=== PATIENT | male | born 1950 | race Two or more races ===

== ENCOUNTER 2024-10-09 08:58 | Inpatient (IN) | payer OTHER, MEDICAID ==
[2024-10-09] VITALS (47 sets, daily range): BP systolic 95–145; BP diastolic 33–90; PULSE 73–156; RESP 11–19; TEMP 93.6–99; O2SAT 89–100
[~2024-10-09] VITALS: Ht 175.3 cm; Wt 68.0 kg
[2024-10-09] MEDS: FLUMAZENIL 0.1 MG/ML INJ 10ML MDV IV ONE ×3 (09:04→09:58)
--- NOTE | 2024-10-09 09:11 | ED.PDOC ---
Psychiatric HPI Comments 74 y.o male presents to the ED via EMS for an evaluation of an overdose. EMS reports patient's family member found him unresponsive at home after attempting to wake him up. Per family patient has been unresponsive for the past 2 hours, unknown when he was last seen acting normal. Patient had an empty bottle of lorazepam near him with a 30 day/30 tablet supply but it is unsure per family how many patient took. Patient does have a history of previous suicidal attempts. EMS intubated en field. Patient has a left AKA. Time Seen by MD: 08:58 Reviewed Notes: Nurses Notes, Medications, Allergies Information Source: Emergency Med Personnel Mode of Arrival: EMS Timing: Hours Duration: Since onset Prehospital treatment: 12 Lead EKG, Accucheck, Ice Resurfacing Machine Operators, Intubation Circumstance: Found:Unconscious History of: Anxiety, Suicidal Attempt Associated signs and symptoms: Anxiety Past Medical History PAST MEDICAL HISTORY: Anxiety Surgical History: AKA (left ) Family History Family History: Reviewed,noncontributory to illness Social History Smoker: Unobtainable Alcohol: Unobtainable Drugs: Unobtainable Lives In: Unobtainable Unable to Obtain due to: Intubated Physical Exam General Appearance: Severe Distress HEENT: Other (Pupils not reactive) Neck: Full Range of Motion, Non-Tender, Normal, Normal Inspection Respiratory: Respiratory Distress, Other (Intubated) Cardiovascular: No Edema, No JVD, No Murmur, No Gallop, Normal Peripheral Pulses, Tachycardia Breast Exam: Deferred Gastrointestinal: No Organomegaly, Non Tender, No Pulsatile Mass, Normal Bowel Sounds, Soft Genitalia: Deferred Pelvic: Deferred Rectal: Deferred Extremities: Other (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 Was a procedure done?: Yes Sedation Sedation?: No Central Line Recorder of insertion practice: Charge Master Specialist Occupation of special diet cook: Attending Physician Indication: Hypotension, CVP monitoring Room prepared for procedure: Yes Charge Master Specialist performed hand hygien: Yes Maximal sterile barrier precau: Mask/Eye shield, Sterile gown Skin Preparation: Chlorhexidine gluconate, Providine iodine Skin preparation completely dr: Yes Insertion site: Right, Internal jugular Central line catheter type: [id number] dialysis Number of lumens: 3 Antiseptic ointment applied to: Yes Post Assessment: Chest X-Ray Psych Differential Dx Psych. Differential Dx: Anxiety, Suicidal X-Ray, Labs, Meds, VS Vital Signs Date Time Temp Pulse Resp B/P (MAP) Pulse Ox O2 Delivery O2 Flow Rate FiO2 10/09/24 12:40 103/52 10/09/24 12:30 133 16 103/52 (69) 96 10/09/24 12:28 98/53 10/09/24 12:17 115 16 98/53 (68) 96 10/09/24 12:10 96/64 10/09/24 12:02 93.6 108 17 95/54 100 40 93.6 10/09/24 12:00 125 16 96/64 (75) 97 10/09/24 12:00 107 10/09/24 11:45 93.6 106 17 95/54 (68) 100 93.6 10/09/24 11:40 98/62 10/09/24 11:34 116 16 98/62 (74) 100 10/09/24 11:31 108 17 100 40 10/09/24 11:10 100/53 10/09/24 11:00 105 16 93/54 (67) 100 10/09/24 10:45 93.7 105 17 106/55 (72) 100 93.7 10/09/24 10:40 91/51 10/09/24 10:35 84/52 10/09/24 10:33 85 16 84/52 (63) 100 50 10/09/24 10:30 67/36 10/09/24 10:30 97 17 84/52 (63) 100 10/09/24 10:25 64/38 10/09/24 10:20 91/48 10/09/24 10:15 82/53 10/09/24 10:15 114 17 66/43 (51) 100 10/09/24 10:10 76/48 10/09/24 10:05 66/43 10/09/24 10:00 133 21 86/48 (61) 100 10/09/24 09:58 134 10/09/24 09:57 67/31 6/5/25 09:57 67/36 10/09/24 09:55 137 21 72/43 (53) 100 10/09/24 09:53 145 16 100 Mechanical Ventilator+ 100 100 10/09/24 09:50 122 21 65/38 (47) 100 10/09/24 09:40 113 21 66/33 (44) 100 10/09/24 09:37 98.7 148 8 72/40 (51) 95 98.7 10/09/24 09:36 126 21 60/35 (43) 100 10/09/24 09:35 68/45 10/09/24 09:30 139 21 59/38 (45) 99 10/09/24 09:20 157 21 77/48 (58) 99 10/09/24 09:14 98.0 146 21 68/45 (53) 99 98.0 10/09/24 09:11 148 10/09/24 09:08 150 23 72/40 (51) 99 100 10/09/24 09:05 148 Lab Test 10/09/24 12:13 10/09/24 10:23 10/09/24 10:20 10/09/24 09:38 Range/Units Lactic Acid Level 5.9 *H 0.4-2.0 mmol/L Troponin I High Sensitivity 444 *H 277 *H </=54 ng/L Blood Gas Specimen Type Arterial Blood Gas Sample Site Right radial Blood Gas Patient Temperature 37.0 Arterial Blood Date Drawn [id number] Arterial Blood pH 7.215 *L 7.350-7.450 Arterial Blood Partial Pressure CO2 37.9 35.0-48.0 mmHg Arterial Blood Partial Pressure O2 382.0 *H 83.0-108.0 mmHg Arterial Blood HCO3 15.0 L 21.0-28.0 mmol/L Arterial Blood Oxygen Saturation 99.8 H 94.0-98.0 % Arterial Blood Base Excess -12.0 L -2.0-3.0 mmol/L Arterial Blood Oxyhemoglobin 98.9 H 94.0-98.0 % Arterial Blood Carboxyhemoglobin 0.4 L 0.5-1.5 % Arterial Blood Methemoglobin 0.5 0.0-1.5 % Jak Test Modified Blood Gas Total Hemoglobin 13.60 13.5-17.5 g/dL Blood Gas Set Respiration Rate 16.0 Blood Gas Modality Vent - ac FiO2 % 100.0 Blood Gas Tidal Volume 500.0 Blood Gas PEEP or CPAP 5.0 Blood Gas Critical Value Read Back Yes Blood Gas Notified Whom millicent Cates md Blood Gas Notified Time [id number] Blood Gas Notified By Commercial Field Inspector michael meadows Magnesium Level 2.1 1.6-2.6 mg/dL Urine Color Colorless Yellow Urine Clarity Clear Clear Urine pH 6.0 5.0-9.0 Urine Specific [place] 1.006 1.001-1.035 Urine Protein Negative Negative Urine Ketones Negative Negative Urine Blood Negative Negative /uL Urine Nitrite Negative Negative Urine Bilirubin Negative Negative Urine Urobilinogen Normal Negative mg/dL Urine Leukocyte Esterase Negative Negative /uL Urine RBC <1 0 - 3 /hpf Urine Microscopic WBC < 1 0-3 /HPF Urine Squamous Epithelial Cells None seen <5 /hpf Urine Bacteria Few H None Seen /hpf Urine Glucose Normal Normal mg/dL Test 10/09/24 09:17 Range/Units White Blood Count 10.4 4.4-10.8 10^3/uL Red Blood Count 4.13 L 4.5-5.90 10^6/uL Hemoglobin 14.5 13.5-17.5 g/dL Hematocrit 42.6 41.0-53.0 % Mean Corpuscular Volume 103.2 H 80.0-100.0 fL Mean Corpuscular Hemoglobin 35.1 H 28.0-32.0 pg Mean Corpuscular Hemoglobin Concent 34.0 32.0-36.0 g/dL Red Cell Distribution Width 15.4 H 11.8-14.3 % Platelet Count 294 140-450 10^3/uL Mean Platelet Volume 7.3 6.9-10.8 fL Neutrophils (%) (Auto) 77.1 37.0-80.0 % Lymphocytes (%) (Auto) 15.5 10.0-50.0 % Monocytes (%) (Auto) 5.5 0.0-12.0 % Eosinophils (%) (Auto) 1.2 0.0-7.0 % Basophils (%) (Auto) 0.7 0.0-2.0 % Neutrophils # (Auto) 8.0 1.6-8.6 10 ^3/uL Lymphocytes # (Auto) 1.6 0.4-5.4 10 ^3/uL Monocytes # (Auto) 0.6 0-1.3 10 ^3/uL Eosinophils # (Auto) 0.1 0-0.8 10 ^3/uL Basophils # (Auto) 0.1 0-0.2 10 ^3/uL Nucleated Red Blood Cells 0.1 % Sodium Level 147 H 136-145 mmol/L Potassium Level 3.4 L 3.5-5.1 mmol/L Chloride Level 110 H 98-107 mmol/L Carbon Dioxide Level 20 20-31 mmol/L Anion Gap 17 H 5-15 Blood Urea Nitrogen 15 9-23 mg/dL Creatinine 1.50 H 0.700-1.30 mg/dL Glomerular Filtration Rate Calc 49 >90 mL/min BUN/Creatinine Ratio 10.0 10.0-20.0 Serum Glucose 202 H 74-106 mg/dL Hemoglobin A1c 5.2 <5.7 % A1C Lactic Acid Level 8.9 *H 0.4-2.0 mmol/L Calcium Level 9.0 8.7-10.4 mg/dL Troponin I High Sensitivity 179 *H </=54 ng/L Current Medications Medications (Trade) Dose Ordered Sig/Jose Route Start Time Stop Time Status Last Admin Flumazenil (Romazicon Injection) 0.4 mg ONCE ONCE IV 10/09/24 09:15 10/09/24 09:16 DC 10/09/24 09:35 Sodium Chloride 1,000 ml @ 1,000 mls/hr Q1H ONCE IV 10/09/24 09:15 10/09/24 10:14 DC 10/09/24 09:34 Sodium Chloride 1,000 ml @ 150 mls/hr Q6H40M ONCE IV 10/09/24 09:15 10/09/24 15:54 10/09/24 09:15 Flumazenil (Romazicon Injection) 0.4 mg ONCE ONCE IV 10/09/24 09:45 10/09/24 09:46 DC 10/09/24 09:58 Norepinephrine Bitartrate 250 ml @ 3.75 mls/hr Q24H IV 10/09/24 09:45 10/09/24 09:57 Midazolam HCl 50 ml @ 1 mls/hr Q24H IV 10/09/24 09:45 10/09/24 12:28 Amiodarone HCl 100 ml @ 600 mls/hr ONCE ONCE IV 10/09/24 10:15 10/09/24 10:24 DC 10/09/24 10:18 Patient unconscious. Vitals stable. Had taken unknown amount of lorazepam. Good skin color. Unable to appreciate any reaction of the pupils. Has tried to harm himself in the past. Waiting for family. Continue to monitor. Time of 1ST Reevaluation: 09:06 Reevaluation 1ST: Unchanged Patient Education/Counseling: Pt Unresponsive Family Education/Counseling: No Family Present Departure 1 Departure Time of Disposition: 09:14 Impression: Primary Impression: Metabolic encephalopathy Additional Impressions: Anxiety Respiratory failure Qualified Codes: J96.01 - Acute respiratory failure with hypoxia Atrial fibrillation Qualified Codes: I48.0 - Paroxysmal atrial fibrillation Disposition: ADMITTED INPATIENT Admit to: ICU Condition: Guarded Critical Care Note Critical Care Time?: Yes (90 min-critical care time only) Critical care comment: Unconscious Stability Stability form required: No Heart Score Heart Score: Heart Score Response (Comments) Value History Slightly Suspicious 0 EKG Normal 0 Age >65 2 Risk Factors >3 or Hx ASHD 2 Troponin Normal limit 0 Total 4 I personally scribed for STAR FOX MD ([email or web address]) on 10/09/24 at 09:11. Electronically submitted by Taryn Jean Baptiste ([facility]). STAR FOX MD Oct 09, 2024 09:11
[2024-10-09] MEDS: SODIUM CHLORIDE 0.9% 1,000 ML IV ONE ×2 (09:15→09:34)
[2024-10-09 09:31] LABS: Basophils # (auto) 0.1 10 ^3/uL (0-0.2); Basophils % (auto) 0.7 % (0.0-2.0); Eosinophils # (auto) 0.1 10 ^3/uL (0-0.8); Eosinophils % (auto) 1.2 % (0.0-7.0); Hematocrit 42.6 % (41.0-53.0); Hemoglobin 14.5 g/dL (13.5-17.5); Lymphocytes # (auto) 1.6 10 ^3/uL (0.4-5.4); Lymphocytes % (auto) 15.5 % (10.0-50.0); Mean Corpuscular Hemoglobin 35.1 pg (28.0-32.0); Mean Corpuscular Volume 103.2 fL (80.0-100.0); Monocytes # (auto) 0.6 10 ^3/uL (0-1.3); Monocytes % (auto) 5.5 % (0.0-12.0); Neutrophils % (auto) 77.1 % (37.0-80.0); Nucleated Red Blood Cells % 0.1 %; Platelet Count (auto) 294 10^3/uL (140-450); Red Blood Cells 4.13 10^6/uL (4.5-5.90); Red Cell Distribution Width 15.4 % (11.8-14.3); White Blood Cell 10.4 10^3/uL (4.4-10.8)
[2024-10-09] MEDS: MIDAZOLAM DRIP 50 mg/50mL 50 ML IV ONE (09:35)
[2024-10-09 09:39] LABS: Anion Gap 17 (5-15); Carbon Dioxide 20 mmol/L (20-31)
[2024-10-09 09:40] LABS: Chloride 110 mmol/L (98-107); Potassium 3.4 mmol/L (3.5-5.1); Sodium 147 mmol/L (136-145)
[2024-10-09 09:45] LABS: Blood Urea Nitrogen 15 mg/dL (9-23); Glucose 202 mg/dL (74-106)
[2024-10-09] MEDS: NOREPINEPHRINE 8 MG/250ML KIT 250 ML IV ONE (09:45)
[2024-10-09 09:49] LABS: Lactic Acid w/Reflex 8.9 mmol/L (0.4-2.0)
[2024-10-09 09:55] LABS: Urine Bacteria FEW /hpf (None Seen); Urine Blood Negative /uL (Negative); Urine Clarity Clear (Clear); Urine Color Colorless (Yellow); Urine Protein, UAD Negative (Negative); Urine Specific Gravity 1.006 (1.001-1.035); Urine Squamous Epithelial Cell None Seen /hpf (<5); Urine Urobilinogen Normal (Negative); Urine WBC < 1 /HPF (0-3)
[2024-10-09] MEDS: MIDAZOLAM DRIP 50 mg/50mL 50 ML IV SCH (09:57)
[2024-10-09] MEDS: NOREPINEPHRINE 8 MG/250ML KIT 250 ML IV SCH (09:57)
--- NOTE | 2024-10-09 10:17 | DVH ---
EXAM: XY CHEST PORTABLE Indication: sob Technique: Single frontal view of the chest was obtained Comparison: None FINDINGS: Lines and Tubes: Endotracheal tube projects 4.3 cm above the cherri. Enteric tube tip projects over t he expected region of the stomach. Lungs: Linear atelectasis versus scarring in the left lower lung. Pleura: No effusion. No pneumothorax. Cardiomediastinal contours: Unremarkable Bones: No acute osseous abnormality. * IMPRESSION: Endotracheal and enteric tube project in appropriate position. Linear atelectasis versus scarring in the left lower lung.
[2024-10-09] MEDS: AMIODARONE BOLUS KIT 100 ML IV ONE ×2 (10:18)
[2024-10-09] MEDS: AMIODARONE 360mg/200mL PREMIX 200 ML IV ONE (10:44)
--- NOTE | 2024-10-09 11:59 | DVH ---
EXAM: CT HEAD WITHOUT CONTRAST INDICATION: Altered TECHNIQUE: CT of the head without intravenous contrast. Coronal and sagittal reformatted images are s ubmitted. Radiation Dose : 1. Head: CT Dose: CTDI volume is 55.64 mGy. Dose-length product is 1013.29 mGy*cm The dose indicators for CT are the volume Computed Tomography (CT) Dose Index (CTDIvol) and the Dose Length Product (DLP), and are measured in units of mGy and mGy-cm, respectively. These indicators are not patient dose, but values generated from the CT scanner acquisition factors. The report includes radiation exposure data for exposures received during this examination. All CT scans at this medical facility are performed using dose modulation techniques as appropriate to a performed exam including the following: Automated exposure control was utilized; adjustment of the MA and/or KV according to patient size; and use of iterative reconstruction technique. COMPARISON: None FINDINGS: There is no evidence of acute intracranial hemorrhage, extra-axial collection, mass effect, midline s hift, herniation or hydrocephalus. The ventricles, sulci and cisterns are age appropriate. The gary-white differentiation is intact. The visualized paranasal sinuses and mastoid air cells are clear. No depressed calvarial fracture. The surrounding soft tissues are unremarkable. IMPRESSION: 1. No evidence of acute intracranial abnormality.
[2024-10-09] MEDS ORDERED: ACETAMINOPHEN 325 MG TAB PO PRN (12:45)
[2024-10-09] MEDS ORDERED: DEXTROSE (50%) 50ML SYRG IV PRN (12:45)
[2024-10-09] MEDS ORDERED: NITROGLYCERIN 0.4 MG SL TAB SL PRN (12:45)
[2024-10-09] MEDS ORDERED: METO25TA93 PO (12:51)
[2024-10-09] MEDS ORDERED: AMLO1TAB22 PO (12:51)
[2024-10-09] MEDS ORDERED: TAMS0.4C39 PO (12:51)
--- NOTE | 2024-10-09 12:51 | DVHHP2 ---
History of Present Illness Reason for Visit: ALOC History of Present Illness Jorge L Hummel is a 74-year-old male with past medical history of anxiety, SI, and left AKA who presents to the ED by EMS was found down by family member last known well time was last night. Patient was found near empty bottle of pills. Upon examination patient is currently intubated on the vent on 40%. Unable to obtain more information as per patient's status. Called number on file Fe, patient's . She stated she woke up this morning and tried to wake him up and was unable to get him to wake up. She says she had called EMS. Patient's stated in the EMS found the empty bottle medication under his buttocks. She also states that he was attempting to kill himself multiple times by cutting himself also overdosing on medications several times due to tiredness and depression. Psych: Anxiety, Other (SI) Past Surgical History: Other (Left AKA) Review of Systems Allergies: Coded Allergies: UNOBTAINABLE (Unverified , 10/09/24) Medications Current Medications Medications Dose Ordered Sig/Jose Route Start Time Stop Time Status Last Admin Dose Admin Norepinephrine Bitartrate 250 ml @ 3.75 mls/hr Q24H IV 10/09/24 09:45 10/09/24 09:57 3.75 MLS/HR Midazolam HCl 50 ml @ 1 mls/hr Q24H IV 10/09/24 09:45 10/09/24 12:28 10 MLS/HR Exam Vital Signs Vital Signs Date Time Temp Pulse Resp B/P (MAP) Pulse Ox O2 Delivery O2 Flow Rate FiO2 10/09/24 12:28 98/53 10/09/24 12:02 93.6 108 17 100 40 93.6 10/09/24 09:53 Mechanical Ventilator+ Respiratory: Normal air movement Cardiovascular: Normal S1, Normal S2 Abdominal: Normal bowel sounds, Soft Labs/Xrays Labs Test 10/09/24 12:13 10/09/24 10:23 10/09/24 09:38 10/09/24 09:17 Range/Units Blood Gas Specimen Type Arterial Blood Gas Sample Site Right radial Blood Gas Patient Temperature 37.0 Arterial Blood Date Drawn [id number] Arterial Blood pH 7.215 *L 7.350-7.450 Arterial Blood Partial Pressure CO2 37.9 35.0-48.0 mmHg Arterial Blood Partial Pressure O2 382.0 *H 83.0-108.0 mmHg Arterial Blood HCO3 15.0 L 21.0-28.0 mmol/L Arterial Blood Oxygen Saturation 99.8 H 94.0-98.0 % Arterial Blood Base Excess -12.0 L -2.0-3.0 mmol/L Arterial Blood Oxyhemoglobin 98.9 H 94.0-98.0 % Arterial Blood Carboxyhemoglobin 0.4 L 0.5-1.5 % Arterial Blood Methemoglobin 0.5 0.0-1.5 % Jak Test Modified Blood Gas Total Hemoglobin 13.60 13.5-17.5 g/dL Blood Gas Set Respiration Rate 16.0 Blood Gas Modality Vent - ac FiO2 % 100.0 Blood Gas Tidal Volume 500.0 Blood Gas PEEP or CPAP 5.0 Blood Gas Critical Value Read Back Yes Blood Gas Notified Whom millicent Cates md Blood Gas Notified Time [id number] Blood Gas Notified By Botanical Technical Officer michael meadows Urine Color Colorless Yellow Urine Clarity Clear Clear Urine pH 6.0 5.0-9.0 Urine Specific [place] 1.006 1.001-1.035 Urine Protein Negative Negative Urine Ketones Negative Negative Urine Blood Negative Negative /uL Urine Nitrite Negative Negative Urine Bilirubin Negative Negative Urine Urobilinogen Normal Negative mg/dL Urine Leukocyte Esterase Negative Negative /uL Urine RBC <1 0 - 3 /hpf Urine Microscopic WBC < 1 0-3 /HPF Urine Squamous Epithelial Cells None seen <5 /hpf Urine Bacteria Few H None Seen /hpf Urine Glucose Normal Normal mg/dL White Blood Count 10.4 4.4-10.8 10^3/uL Red Blood Count 4.13 L 4.5-5.90 10^6/uL Hemoglobin 14.5 13.5-17.5 g/dL Hematocrit 42.6 41.0-53.0 % Mean Corpuscular Volume 103.2 H 80.0-100.0 fL Mean Corpuscular Hemoglobin 35.1 H 28.0-32.0 pg Mean Corpuscular Hemoglobin Concent 34.0 32.0-36.0 g/dL Red Cell Distribution Width 15.4 H 11.8-14.3 % Platelet Count 294 140-450 10^3/uL Mean Platelet Volume 7.3 6.9-10.8 fL Neutrophils (%) (Auto) 77.1 37.0-80.0 % Lymphocytes (%) (Auto) 15.5 10.0-50.0 % Monocytes (%) (Auto) 5.5 0.0-12.0 % Eosinophils (%) (Auto) 1.2 0.0-7.0 % Basophils (%) (Auto) 0.7 0.0-2.0 % Neutrophils # (Auto) 8.0 1.6-8.6 10 ^3/uL Lymphocytes # (Auto) 1.6 0.4-5.4 10 ^3/uL Monocytes # (Auto) 0.6 0-1.3 10 ^3/uL Eosinophils # (Auto) 0.1 0-0.8 10 ^3/uL Basophils # (Auto) 0.1 0-0.2 10 ^3/uL Nucleated Red Blood Cells 0.1 % Sodium Level 147 H 136-145 mmol/L Potassium Level 3.4 L 3.5-5.1 mmol/L Chloride Level 110 H 98-107 mmol/L Carbon Dioxide Level 20 20-31 mmol/L Anion Gap 17 H 5-15 Blood Urea Nitrogen 15 9-23 mg/dL Creatinine 1.50 H 0.700-1.30 mg/dL Glomerular Filtration Rate Calc 49 >90 mL/min BUN/Creatinine Ratio 10.0 10.0-20.0 Serum Glucose 202 H 74-106 mg/dL Calcium Level 9.0 8.7-10.4 mg/dL EXAM: CT HEAD WITHOUT CONTRAST INDICATION: Altered TECHNIQUE: CT of the head without intravenous contrast. Coronal and sagittal reformatted images are submitted. Radiation Dose : 1. Head: CT Dose: CTDI volume is 55.64 mGy. Dose-length product is 1013.29 mGy*cm The dose indicators for CT are the volume Computed Tomography (CT) Dose Index (CTDIvol) and the Dose Length Product (DLP), and are measured in units of mGy and mGy-cm, respectively. These indicators are not patient dose, but values generated from the CT scanner acquisition factors. The report includes radiation exposure data for exposures received during this examination. All CT scans at this medical facility are performed using dose modulation techniques as appropriate to a performed exam including the following: Automated exposure control was utilized; adjustment of the MA and/or KV according to patient size; and use of iterative reconstruction technique. COMPARISON: None FINDINGS: There is no evidence of acute intracranial hemorrhage, extra-axial collection, mass effect, midline shift, herniation or hydrocephalus. The ventricles, sulci and cisterns are age appropriate. The gary-white differentiation is intact. The visualized paranasal sinuses and mastoid air cells are clear. No depressed calvarial fracture. The surrounding soft tissues are unremarkable. IMPRESSION: 1. No evidence of acute intracranial abnormality. EXAM: XY CHEST PORTABLE Indication: sob Technique: Single frontal view of the chest was obtained Comparison: None FINDINGS: Lines and Tubes: Endotracheal tube projects 4.3 cm above the cherri. Enteric tube tip projects over the expected region of the stomach. Lungs: Linear atelectasis versus scarring in the left lower lung. Pleura: No effusion. No pneumothorax. Cardiomediastinal contours: Unremarkable Bones: No acute osseous abnormality. * IMPRESSION: Endotracheal and enteric tube project in appropriate position. Linear atelectasis versus scarring in the left lower lung. Assessment/Plan Assessment/Plan Assessment Acute metabolic encephalopathy likely due to overdose on temazepam Lactic acidosis likely due to sepsis Acute hypoxic respiratory failure Hyponatremia Hypokalemia DANE Hyperglycemia Elevated troponins AFib RVR History of anxiety History of SI History of left AKA Plan Admit to ICU Intubated on vent Hold benzodiazepines Replete lytes Mag level Sedation-fentanyl and propofol Pressor to keep maps greater than 65 Respiratory culture ABG Ventilator Lactic level Blood cultures CT head noted UA noted Chest x-ray Trend troponins Echo ordered NPO Hemoglobin A1c ISS and Accu-Cheks IV fluids Home medications reconciled DVT prophylaxis-Lovenox PUD prophylaxis-PPIs Discussed plan of care with patient's spouse and nurse No beta-blockers per Cardiology due to patient being on pressor support Digoxin Cardiology consult Poison control called and stated to check a Tylenol and aspirin panel, repeat BMP, and administer 3g of IV calcium gluconate for possibility of CCB OD Referencing up-to-date and Epocrates for the 3 g of IV calcium gluconate as patient was prescribed amlodipine Plan discussed with: Other Date of Service: Oct 09, 2024 Billing Provider: LINDA SOUSA Common Visit Codes: [id number] INP/OBS CARE (HIGH) LINDA SOUSA Oct 09, 2024 12:51
[2024-10-09] MEDS ORDERED: VANCOMYCIN PER PHARMACY 0 MG IV SCH (13:15)
[2024-10-09] MEDS ORDERED: MORPHINE SULFATE 4 MG/ML SYR/VIAL IV PRN (13:30)
[2024-10-09] MEDS: SODIUM CHLORIDE 0.9% 1,000 ML IV SCH (13:36)
[2024-10-09] MEDS: MAGNESIUM SULFATE 1GM/100ML 100 ML IV ONE (13:37)
[2024-10-09] MEDS: CEFEPIME 1GM/ 50ML 50 ML IV ONE (13:42)
[2024-10-09] MEDS: PROPOFOL 100 ML IV ONE (13:58)
[2024-10-09] MEDS: PROPOFOL 100 ML IV SCH (14:09)
[2024-10-09 14:22] LABS: Potassium 4.3 mmol/L (3.5-5.1)
[2024-10-09 14:23] LABS: Anion Gap 16 (5-15)
[2024-10-09 14:28] LABS: BUN/Creatinine Ratio 12.2 (10.0-20.0); Blood Urea Nitrogen 14 mg/dL (9-23); Calcium 7.9 mg/dL (8.7-10.4); Carbon Dioxide 17 mmol/L (20-31); Chloride 113 mmol/L (98-107); Glucose 140 mg/dL (74-106); Sodium 146 mmol/L (136-145)
[2024-10-09 14:32] LABS: Acetaminophen < 2.0 UG/ML (10.0-20.0); Salicylate < 3.0 mg/dL (-30)
--- NOTE | 2024-10-09 14:55 | DVH ---
CHEST RADIOGRAPH Indication: CONFIRM CENTRAL LINE Technique: Single frontal view of the chest was obtained COMPARISON: XY CHEST PORTABLE on DOS: 10/09/24 FINDINGS: Lines and Tubes: Endotracheal tube, enteric catheter and right central venous catheter in satisfactor y position. Lungs: Patchy bilateral airspace disease. Pleura: No effusion. No pneumothorax. Cardiomediastinal contours: Unremarkable Bones: Unremarkable IMPRESSION: Right central venous catheter in satisfactory position.
--- NOTE | 2024-10-09 14:56 | DVHINCON2 ---
EUGENIO BETTENCOURT [facility] 10/09/24 1456: Date Seen: Oct 09, 2024 Referring Physician CATHLEEN Alcantara Reason for Consultation Elevated troponin History of Present Illness This is a 74-year-old female patient who presents to the emergency room with chief complaint of overdose. At the time of assessment, the patient is chemically sedated and mechanically ventilated. There is no family at bedside. History obtained from medical records and bedside RN. According to bedside RN, the patient's family members found the patient unresponsive. The patient was also found to have an empty bottle of temazepam near him, but family's unsure of exactly how many pills he may have taken. There is also suspicion for possible calcium channel radha overdose given that the patient also is prescribed calcium channel blockers at home. Cardiology has been consulted at this time for elevated troponin level. Initial twelve lead electrocardiogram reveals atrial fibrillation with prolonged QTc interval. Initial troponin level of 179ng/L with up trend and current peak level at 444ng/L. Significant past medical history includes hypertension, dyslipidemia, BPH, and previous suicidal attempts. Past Medical History Past medical history reviewed. No other significant than mentioned above. Past Surgical History Left nrmsb-jyw-gyil amputation Family History Family history reviewed. Social History Unable to obtain social history Allergies: Coded Allergies: UNOBTAINABLE (Unverified , 10/09/24) Home Meds Reported Medications Tamsulosin Hcl (Tamsulosin Hcl) 0.4 Mg Cap, 1 CAP PO DAILY 10/09/24 Amlodipine Besylate (Amlodipine Besylate) 5 Mg Tab, 1 TAB PO DAILY 10/09/24 Metoprolol Succinate (Metoprolol Succinate Er) 25 Mg Tab, 1 TAB PO DAILY 10/09/24 Home Meds Home medications reviewed. Current Medications Current Medications Medications (Trade) Dose Ordered Sig/Jose Route PRN Reason Start Time Stop Time Status Last Admin Norepinephrine Bitartrate 250 ml @ 3.75 mls/hr Q24H IV 10/09/24 09:45 10/09/24 09:57 Midazolam HCl 50 ml @ 1 mls/hr Q24H IV 10/09/24 09:45 10/09/24 12:28 Sodium Chloride 1,000 ml @ 100 mls/hr Q10H IV 10/09/24 12:45 10/09/24 13:36 Acetaminophen (Tylenol Tablet) 650 mg Q6HP PRN PO PAIN SCALE 1-3 OR TEMP>100.4 10/09/24 12:45 Nitroglycerin (Ntrostat Sublingual) 0.4 mg Q5MINP PRN SL FOR CHEST PAIN 10/09/24 12:45 Morphine Sulfate 2 mg Q30M PRN IV FOR CHEST PAIN 10/09/24 13:30 Enoxaparin Sodium (Lovenox) 40 mg DAILY SC 10/10/24 10:00 Diagnostic Test (Pha) (Accu-Chek Comfort Curve T) 1 strip Q6HR 10/09/24 18:00 Insulin Human Regular (InsuLIN R) Q6HR SC 10/09/24 18:00 Dextrose 50 ml UD PRN IV Blood Sugar LESS THAN 60 10/09/24 12:45 Amlodipine Besylate (Norvasc Tablet) 5 mg DAILY PO 10/10/24 10:00 Tamsulosin HCl (Flomax) 0.4 mg QPM PO 10/09/24 18:00 Metoprolol Succinate (Toprol Xl) 25 mg DAILY PO 10/10/24 10:00 Vancomycin HCl 0 ml @ 0 mls/hr UD IV 10/09/24 13:15 Cefepime HCl 50 ml @ 12.5 mls/hr Q12HR IV 10/09/24 22:00 Calcium Gluconate/ Sodium Chloride 50 ml @ 100 mls/hr Q30M IV 10/09/24 13:45 10/09/24 15:14 Propofol 100 ml @ 1.767 mls/ hr Q24H IV 10/09/24 14:00 10/09/24 14:09 Review of Systems Constitutional: No symptom reported Ears, Nose, & Throat: No symptom reported Eyes: No symptom reported Neurological: No symptoms reported Pulmonary/Respiratory: No symptoms reported Cardiovascular: No symptom reported Gastrointestinal: No symptom reported Genitourinary: No symptom reported Musculoskeletal: No symptom reported Skin: No symptom reported Psychiatric: No symptom reported Endocrine: No symptom reported Hematologic/Lymphatic: No symptom reported Vital Signs Vital Signs Date Time Temp Pulse Resp B/P (MAP) Pulse Ox O2 Delivery O2 Flow Rate FiO2 10/09/24 14:20 108/61 10/09/24 13:15 95.2 118 16 96 95.2 10/09/24 12:02 40 10/09/24 09:53 Mechanical Ventilator+ Physical Exam General Appearance: Calm, relaxed Pulmonary/Respiratory: Mechanically ventilated Cardiovascular/Chest: Irregularly irregular rate and rhythm Peripheral Pulses: 2+ Radial (R). 2+ Radial (L). 2+ Pedal (R). Abdominal Exam: Normal bowel sounds. Ankle Exam: Negative ankle edema Lower extremities: Negative lower extremity edema Neuro/Mental Status: Chemically sedated Thoughts/Psych: Deferred Appearance: No acute distress. Skin Exam: Normal inspection. Normal color. Warm and dry. Left rijni-jsy-intb amputation Labs/Diagnostic Data Labs Test 10/09/24 14:00 10/09/24 13:21 10/09/24 12:13 10/09/24 10:23 Range/Units Sodium Level 146 H 136-145 mmol/L Potassium Level 4.3 3.5-5.1 mmol/L Chloride Level 113 H 98-107 mmol/L Carbon Dioxide Level 17 L 20-31 mmol/L Anion Gap 16 H 5-15 Blood Urea Nitrogen 14 9-23 mg/dL Creatinine 1.15 0.700-1.30 mg/dL Glomerular Filtration Rate Calc 68 >90 mL/min BUN/Creatinine Ratio 12.2 10.0-20.0 Serum Glucose 140 H 74-106 mg/dL Calcium Level 7.9 L 8.7-10.4 mg/dL Salicylates Level < 3.0 -30 mg/dL Acetaminophen Level < 2.0 L 10.0-20.0 UG/ML POC Glucose 119 H 70-106 mg/dl Lactic Acid Level 5.9 *H 0.4-2.0 mmol/L Troponin I High Sensitivity 444 *H </=54 ng/L Blood Gas Specimen Type Arterial Blood Gas Sample Site Right radial Blood Gas Patient Temperature 37.0 Arterial Blood Date Drawn [id number] Arterial Blood pH 7.215 *L 7.350-7.450 Arterial Blood Partial Pressure CO2 37.9 35.0-48.0 mmHg Arterial Blood Partial Pressure O2 382.0 *H 83.0-108.0 mmHg Arterial Blood HCO3 15.0 L 21.0-28.0 mmol/L Arterial Blood Oxygen Saturation 99.8 H 94.0-98.0 % Arterial Blood Base Excess -12.0 L -2.0-3.0 mmol/L Arterial Blood Oxyhemoglobin 98.9 H 94.0-98.0 % Arterial Blood Carboxyhemoglobin 0.4 L 0.5-1.5 % Arterial Blood Methemoglobin 0.5 0.0-1.5 % Jak Test Modified Blood Gas Total Hemoglobin 13.60 13.5-17.5 g/dL Blood Gas Set Respiration Rate 16.0 Blood Gas Modality Vent - ac FiO2 % 100.0 Blood Gas Tidal Volume 500.0 Blood Gas PEEP or CPAP 5.0 Blood Gas Critical Value Read Back Yes Blood Gas Notified Whom millicent Cates md Blood Gas Notified Time [id number] Blood Gas Notified By Chef Broiler Or Fry michael Stuart 10/09/24 10:20 10/09/24 09:38 10/09/24 09:17 Range/Units Magnesium Level 2.1 1.6-2.6 mg/dL Urine Color Colorless Yellow Urine Clarity Clear Clear Urine pH 6.0 5.0-9.0 Urine Specific [place] 1.006 1.001-1.035 Urine Protein Negative Negative Urine Ketones Negative Negative Urine Blood Negative Negative /uL Urine Nitrite Negative Negative Urine Bilirubin Negative Negative Urine Urobilinogen Normal Negative mg/dL Urine Leukocyte Esterase Negative Negative /uL Urine RBC <1 0 - 3 /hpf Urine Microscopic WBC < 1 0-3 /HPF Urine Squamous Epithelial Cells None seen <5 /hpf Urine Bacteria Few H None Seen /hpf Urine Glucose Normal Normal mg/dL White Blood Count 10.4 4.4-10.8 10^3/uL Red Blood Count 4.13 L 4.5-5.90 10^6/uL Hemoglobin 14.5 13.5-17.5 g/dL Hematocrit 42.6 41.0-53.0 % Mean Corpuscular Volume 103.2 H 80.0-100.0 fL Mean Corpuscular Hemoglobin 35.1 H 28.0-32.0 pg Mean Corpuscular Hemoglobin Concent 34.0 32.0-36.0 g/dL Red Cell Distribution Width 15.4 H 11.8-14.3 % Platelet Count 294 140-450 10^3/uL Mean Platelet Volume 7.3 6.9-10.8 fL Neutrophils (%) (Auto) 77.1 37.0-80.0 % Lymphocytes (%) (Auto) 15.5 10.0-50.0 % Monocytes (%) (Auto) 5.5 0.0-12.0 % Eosinophils (%) (Auto) 1.2 0.0-7.0 % Basophils (%) (Auto) 0.7 0.0-2.0 % Neutrophils # (Auto) 8.0 1.6-8.6 10 ^3/uL Lymphocytes # (Auto) 1.6 0.4-5.4 10 ^3/uL Monocytes # (Auto) 0.6 0-1.3 10 ^3/uL Eosinophils # (Auto) 0.1 0-0.8 10 ^3/uL Basophils # (Auto) 0.1 0-0.2 10 ^3/uL Nucleated Red Blood Cells 0.1 % Hemoglobin A1c 5.2 <5.7 % A1C Assessment Benzodiazepine overdose NSTEMI Atrial fibrillation with rapid ventricular response, stage unknown Rule out structural heart disease Hypertension Dyslipidemia History of left khheq-vtm-aeuh amputation Plan/Recommendation We will continue with the following plan/recommendations (Dr. Evans): * Transthoracic echocardiogram to evaluate cardiac function * Vasopressors for hemodynamic support * ?[id number] VASc score: 2 points * Therapeutic Lovenox while inpatient, NOAC when appropriate * Hold beta-radha given the patient is on vasopressor support * Monitor and replete electrolytes as needed, keep potassium greater than four and magnesium greater than two * Close Cardiac surveillance Patient seen and examined at bedside with . Thank you for allowing us to care for this patient. Please call with any questions or concerns. Critical care time spent: 44 minutes This medical document was created using an electronic medical record system with voice recognition software and computerized dictation system. Although this document has been carefully reviewed, there might still be some phonetic and typographical errors. Occasional wrong-word or ``sound-alike substitutions may have occurred due to the inherent limitations of voice recognition software. These areas are purely typographical due to imperfections of the software programs and do not reflect any compromise in the patient's medical care. Please read the chart carefully and recognize, using context, where these substitutions have occurred. Plan discussed with: Other (Bedside RN) NYHA Physical activity limitations: NA Date of Service: Oct 09, 2024 Billing Provider: EUGENIO BETTENCOURT Cardiology Common Codes: 08286-LJCCXAN INP/OBS CARE (High) Cardiology Consultation Codes: 37882-[id number] CONSULT <45MIN MIA EVANS MD 10/09/24 1733: Allergies: Coded Allergies: UNOBTAINABLE (Unverified , 10/09/24) Home Meds Reported Medications Tamsulosin Hcl (Tamsulosin Hcl) 0.4 Mg Cap, 1 CAP PO DAILY 10/09/24 Amlodipine Besylate (Amlodipine Besylate) 5 Mg Tab, 1 TAB PO DAILY 10/09/24 Metoprolol Succinate (Metoprolol Succinate Er) 25 Mg Tab, 1 TAB PO DAILY 10/09/24 Plan/Recommendation AFIB RVR, BP IS IMPROVED, WEAN OFF PRESSORS CHECK ECHO IV LASIX X1 POOR UOP EUGENIO BETTENCOURT Oct 09, 2024 14:56 MIA EVANS MD Oct 09, 2024 17:33
[2024-10-09] MEDS: VANCOMYCIN 1GM/200ML PM 200 ML IV ONE (15:44)
[2024-10-09] MEDS: AMIODARONE 360mg/200mL PREMIX 200 ML IV SCH (15:46)
[2024-10-09] MEDS: fentaNYL Drip 2500mCg/250mlNS 250 ML IV SCH (16:30)
[2024-10-09] MEDS: POTASSIUM CHL 20MEQ/100ML 100 ML IV ONE (16:51)
[2024-10-09] MEDS: TAMSULOSIN HYDROCHLORIDE 0.4 MG CAP PO SCH (17:11)
[2024-10-09] MEDS: InsuLIN REG 1unit/0.01ml Soln (100units/ml) SC SCH (17:13)
[2024-10-09] MEDS: ACCU-CHEK COMFORT CURVE STRIP VI SCH (17:13)
[2024-10-09] MEDS: FUROSEMIDE 20 MG/2 ML VIAL IV ONE (18:02)
[2024-10-09] MEDS: CALCIUM GLUC 1,000mg/50ml-NS 50 ML IV SCH (18:03)
--- NOTE | 2024-10-09 19:09 | ECG ---
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
[2024-10-09] MEDS: CEFEPIME 1GM/ 50ML 50 ML IV SCH (22:01)
[2024-10-09] MEDS: ENOXAPARIN SOD 100 MG/1 ML SYRINGE SC SCH (22:02)
[2024-10-10] VITALS (119 sets, daily range): BP systolic 83–162; BP diastolic 50–92; PULSE 64–101; RESP 6–19; TEMP 97.9–99.1; O2SAT 94–100
[2024-10-10 03:44] LABS: Basophils # (auto) 0 10 ^3/uL (0-0.2); Eosinophils # (auto) 0 10 ^3/uL (0-0.8); Lymphocytes # (auto) 1.4 10 ^3/uL (0.4-5.4); Monocytes # (auto) 0.6 10 ^3/uL (0-1.3)
[2024-10-10 03:46] LABS: Basophils % (auto) 0.3 % (0.0-2.0); Eosinophils % (auto) 0.4 % (0.0-7.0); Hematocrit 37.6 % (41.0-53.0); Lymphocytes % (auto) 16.2 % (10.0-50.0); Mean Corpuscular Hemoglobin 35.2 pg (28.0-32.0); Mean Corpuscular Hgb Conc. 34.6 g/dL (32.0-36.0); Mean Corpuscular Volume 101.5 fL (80.0-100.0); Monocytes % (auto) 7.4 % (0.0-12.0); Neutrophils # (auto) 6.5 10 ^3/uL (1.6-8.6); Neutrophils % (auto) 75.7 % (37.0-80.0); Platelet Count (auto) 198 10^3/uL (140-450); Red Cell Distribution Width 15.1 % (11.8-14.3); White Blood Cell 8.6 10^3/uL (4.4-10.8)
[2024-10-10 04:04] LABS: Albumin 3.5 g/dL (3.2-4.8); Alkaline Phosphatase 67 U/L (46-116); Anion Gap 10 (5-15); Blood Urea Nitrogen 17 mg/dL (9-23); Carbon Dioxide 22 mmol/L (20-31); Glucose 103 mg/dL (74-106); Potassium 4.8 mmol/L (3.5-5.1); Sodium 144 mmol/L (136-145); Total Protein 5.9 g/dL (5.7-8.2)
[2024-10-10 04:07] LABS: Alanine Aminotransferase 820 U/L (7-40); Bilirubin, Total 0.2 mg/dL (0.2-1.0); Calcium 8.5 mg/dL (8.7-10.4); Chloride 112 mmol/L (98-107)
[2024-10-10 04:18] LABS: Aspartate Aminotransferase 1825 U/L (13-40)
--- NOTE | 2024-10-10 05:52 | DVH ---
EXAM: XR Chest, 1 View CLINICAL INDICATION: INTUBATED TECHNIQUE: Frontal view of the chest. COMPARISON: XY CHEST XRAY 1 VIEW on DOS: 10/09/24, XY CHEST PORTABLE on DOS: 10/09/24 FINDINGS: LUNGS AND PLEURAL SPACES: Bibasilar atelectasis or pneumonia. No pneumothorax. HEART: Unremarkable. No cardiomegaly. MEDIASTINUM: Unremarkable. Normal mediastinal contour. BONES/JOINTS: Unremarkable. No acute fracture. TUBES, LINES AND DEVICES: The endotracheal tube (ETT) is in satisfactory position. Right internal jugular central venous catheter tip in the superior vena cava. Enteric tube tip cannot be seen but i s below the diaphragm. OTHER FINDINGS: . . . . IMPRESSION: Bibasilar atelectasis or pneumonia.
[2024-10-10 06:54] LABS: Base Excess -5.3 mmol/L (-2.0-3.0)
[2024-10-10 09:05] LABS: Triglycerides 120 mg/dL (< 150)
[2024-10-10 09:06] LABS: LDL Cholesterol 66 mg/dL (< 100)
[2024-10-10 09:07] LABS: Cholesterol 128 mg/dL (< 200); HDL Cholesterol 51 mg/dL (40-59)
[2024-10-10] MEDS ORDERED: METOPROLOL SUCCINATE XL 50 MG TAB PO SCH (10:00)
[2024-10-10] MEDS ORDERED: amLODIPine BESYLATE 5 MG TAB PO SCH (10:00)
[2024-10-10] MEDS ORDERED: ENOXAPARIN SOD 40 MG/0.4 ML SYRINGE SC SCH (10:00)
--- NOTE | 2024-10-10 10:03 | ECG ---
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
--- NOTE | 2024-10-10 11:19 | DVHPN2 ---
EUGENIO BETTENCOURT [facility] 10/10/24 1119: Consult Progress Note Subjective Other Systems: Patient now in normal sinus rhythm on cardiac sonographer Objective vital signs Vital Sign Date Time Temp Pulse Resp B/P (MAP) Pulse Ox O2 Delivery O2 Flow Rate FiO2 10/10/24 10:48 98.6 65 16 108/69 (82) 97 209.5 10/10/24 10:00 30 10/10/24 10:00 Mechanical Ventilator+ Total Intake and Output 10/09/24 10/09/24 10/10/24 15:00 23:00 07:00 Intake Total 2370.25 ml 4956.477 ml 1112.073 ml Output Total 250 ml 125 ml 950 ml Balance 2120.25 ml 4831.477 ml 162.073 ml medications Current Medications Medications Dose Ordered Sig/Jose Route Start Time Stop Time Status Last Admin Dose Admin Norepinephrine Bitartrate 250 ml @ 3.75 mls/hr Q24H IV 10/09/24 09:45 10/09/24 17:11 18.75 MLS/HR Sodium Chloride 1,000 ml @ 100 mls/hr Q10H IV 10/09/24 12:45 10/10/24 08:52 100 MLS/HR Acetaminophen 650 mg Q6HP PRN PO 10/09/24 12:45 Nitroglycerin 0.4 mg Q5MINP PRN SL 10/09/24 12:45 Morphine Sulfate 2 mg Q30M PRN IV 10/09/24 13:30 Diagnostic Test (Pha) 1 strip Q6HR 10/09/24 18:00 10/10/24 06:00 1 STRIP Insulin Human Regular Q6HR SC 10/09/24 18:00 Dextrose 50 ml UD PRN IV 10/09/24 12:45 Tamsulosin HCl 0.4 mg QPM PO 10/09/24 18:00 10/09/24 17:11 0.4 MG Vancomycin HCl 0 ml @ 0 mls/hr UD IV 10/09/24 13:15 Cefepime HCl 50 ml @ 12.5 mls/hr Q12HR IV 10/09/24 22:00 10/10/24 08:52 12.5 MLS/HR Propofol 100 ml @ 1.767 mls/ hr Q24H IV 10/09/24 14:00 10/10/24 03:32 8.835 MLS/HR Fentanyl Citrate 250 ml @ 2.5 mls/hr Q24H IV 10/09/24 16:00 10/09/24 16:30 2.5 MLS/HR Enoxaparin Sodium 70 mg Q12HR SC 10/09/24 22:00 10/10/24 08:53 70 MG Examination: GENERAL:Abnormal, LUNGS:Abnormal (Mechanically ventilated), CVS:Normal, NEURO:Abnormal (Chemically sedated) laboratory and microbiology Laboratory Tests 10/10/24 03:12 Test 10/10/24 03:12 Range/Units Serum Glucose 103 74-106 mg/dL Problem List/Assessment/Plan Problem List/Assessment/Plan Benzodiazepine overdose Atrial fibrillation with rapid ventricular response, stage unknown, now NSR NSTEMI, likely type II secondary to above Rule out structural heart disease Hypertension Dyslipidemia History of left odrfu-vee-weth amputation Plan/Recommendations (Dr. Evans): * Transthoracic echocardiogram to evaluate cardiac function * Vasopressors for hemodynamic support * ?[id number] VASc score: 2 points * Therapeutic Lovenox while inpatient, transition to NOAC when appropriate * Hold beta-radha given the patient is on vasopressor support. Initiate BB when appropriate * Stopped Amiodarone. Pt now NSR----hold oral amio given elevated LFT's. Consider when LFT's normal * Monitor and replete electrolytes as needed, keep potassium greater than four and magnesium greater than two * Close Cardiac surveillance Case discussed with . In the setting of an unremarkable transthoracic echocardiogram, there is no further inpatient cardiac workup deemed necessary at this time. Thank you for allowing us to care for this patient. Please call with any questions or concerns. Critical care time spent: 38 minutes. This medical document was created using an electronic medical record system with voice recognition software and computerized dictation system. Although this document has been carefully reviewed, there might still be some phonetic and typographical errors. Occasional wrong-word or ``sound-alike substitutions may have occurred due to the inherent limitations of voice recognition software. These areas are purely typographical due to imperfections of the software programs and do not reflect any compromise in the patient's medical care. Please read the chart carefully and recognize, using context, where these substitutions have occurred. Plan discussed with: Patient Date of Service: Oct 10, 2024 Billing Provider: EUGENIO BETTENCOURT Common Visit Codes: 14637-[id number] CARE 30-74 MIN MIA EVANS MD 10/13/24 1426: Consult Progress Note Problem List/Assessment/Plan Problem List/Assessment/Plan echo shows LV dysfunction, consider ischemic workup/ cath pending clinical status EUGENIO BETTENCOURT Oct 10, 2024 11:19 MIA EVANS MD Oct 13, 2024 14:26
[2024-10-10] MEDS: VANCOMYCIN 1.25GM/250ML 250 ML IV SCH (15:03)
--- NOTE | 2024-10-10 16:18 | DVHPNRES ---
Progress Note Date Seen: Oct 10, 2024 Resident Creating Document: RENETTA SCHWARTZ RESIDENT Has the PT tested + for MRSA If YES, has PT been informed?: No Medical Necessity Reason Pt with a Central, PICC or Fol: Yes The following are medically ne: Central Line Medical Necessity Reason Subjective Review of Systems Patient is a 74-year-old male multiple medical history including anxiety, suicide ideation also left above-knee amputation who was brought in was found by a family member unconscious next to an empty bottle of lorazepam pills. Patient was immediately intubated upon arrival. Patient is still intubated and mechanically ventilated with FiO2 of 30%. ED patient received flumazenil .12 lead EKG showed AFib thus patient was given amiodarone. Currently in sinus normal sinus rhythm. Patient is currently on midazolam Levophed and propofol. Chest x-ray revealed Bibasilar atelectasis or pneumonia. Patient started on vancomycin per pharmacy and cefepime. Looked with the patient's this afternoon just to get a little bit more information about the patient history of overdose. According to the , Fe, she mentioned that this is not the 1st nor the 2nd time that Mr. Hummel is overdosed on a medication. Apparently, he has done this few times in the past and he has a history of drug overdose or suicidal attempts. Per the , the last time he had an overdose he was sent to I think a recovery replaced but she said that did not do him any good. Objective vital signs Vital Sign Date Time Temp Pulse Resp B/P (MAP) Pulse Ox O2 Delivery O2 Flow Rate FiO2 10/10/24 15:06 69 16 114/74 (87) 96 30 10/10/24 14:18 99.0 210.2 10/10/24 14:00 Mechanical Ventilator+ Total Intake and Output 10/09/24 10/09/24 10/10/24 15:00 23:00 07:00 Intake Total 2370.25 ml 4956.477 ml 1112.073 ml Output Total 250 ml 125 ml 950 ml Balance 2120.25 ml 4831.477 ml 162.073 ml medications Current Medications Medications Dose Ordered Sig/Jose Route Start Time Stop Time Status Last Admin Dose Admin Norepinephrine Bitartrate 250 ml @ 3.75 mls/hr Q24H IV 10/09/24 09:45 10/09/24 17:11 18.75 MLS/HR Sodium Chloride 1,000 ml @ 100 mls/hr Q10H IV 10/09/24 12:45 10/10/24 08:52 100 MLS/HR Acetaminophen 650 mg Q6HP PRN PO 10/09/24 12:45 Nitroglycerin 0.4 mg Q5MINP PRN SL 10/09/24 12:45 Morphine Sulfate 2 mg Q30M PRN IV 10/09/24 13:30 Diagnostic Test (Pha) 1 strip Q6HR 10/09/24 18:00 10/10/24 11:42 1 STRIP Insulin Human Regular Q6HR SC 10/09/24 18:00 Dextrose 50 ml UD PRN IV 10/09/24 12:45 Tamsulosin HCl 0.4 mg QPM PO 10/09/24 18:00 10/09/24 17:11 0.4 MG Vancomycin HCl 0 ml @ 0 mls/hr UD IV 10/09/24 13:15 Cefepime HCl 50 ml @ 12.5 mls/hr Q12HR IV 10/09/24 22:00 10/10/24 08:52 12.5 MLS/HR Propofol 100 ml @ 1.767 mls/ hr Q24H IV 10/09/24 14:00 10/10/24 12:11 8.835 MLS/HR Fentanyl Citrate 250 ml @ 2.5 mls/hr Q24H IV 10/09/24 16:00 10/09/24 16:30 2.5 MLS/HR Enoxaparin Sodium 70 mg Q12HR SC 10/09/24 22:00 10/10/24 08:53 70 MG Vancomycin HCl 250 ml @ 200 mls/hr Q24H IV 10/10/24 15:00 10/10/24 15:03 200 MLS/HR Examination General Appearance: Sedated HEENT: Atraumatic Respiratory: Intubated and on mechanical ventilation Cardiovascular: Sinus rhythm. Normal S1, Normal S2, No murmurs, no chest wall tenderness Abdominal: NO distention, no tenderness, bowel sounds present, no scars noted Extremities: left leg AKA Skin: No rashes, No breakdown, No significant lesion Neuro: Unconscious Psych/Mental Status:n/a laboratory and microbiology Laboratory Tests 10/10/24 03:12 Test 10/10/24 03:12 Range/Units Serum Glucose 103 74-106 mg/dL Microbiology Date/Time Source Procedure Growth Status 10/09/24 09:17 Blood Blood Culture - Preliminary NO GROWTH AFTER 24 HOURS OF INCUBATION. Resulted 10/09/24 09:12 Sputum Gram Stain Pending Resulted 10/09/24 09:12 Sputum Respiratory Culture - Preliminary Resulted Problem List/Assessment/Plan Problem List/Assessment/Plan Assessment and plan: NEURO: Acute metabolic encephalopathy due to benzodiazepine overdose - Flumazenil - s/p intubation - Currently on propofol and fentanyl lowest does. - Possible percedex tomorrow in preparation for Cpap trial CARDIOVASCULAR: Atrial fibrillation with rapid ventricular response, stage unknown, now NSR NSTEMI, likely type II secondary to above Atrial fibrillation with rapid ventricular response, stage unknown Hypotension - Amiodarone drip - Transthoracic echocardiogram to evaluate cardiac function - Vasopressors for hemodynamic support - Troponin uptrending 983, rule out PR - Reconsult Cardiology PULMONARY: Acute hypoxic respiratory failure Possible aspiration pneumonia Pneumonia gram-/gram+ - intubated - CxR showed Bibasilar atelectasis or pneumonia - Cefepime 1gm q12 hr and vancomycin GASTROINTESTINAL: Acute liver failure/ Drug Induce liver injury vs shock liver AST: 182 ALT: 820 Alkaline phosphate: 67 T. 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 Case discussed with Dr. Herron Plan discussed with: Other (RN) Plan discussed with: Patient LANARENETTA RESIDENT Oct 10, 2024 16:18
[2024-10-11] VITALS (119 sets, daily range): BP systolic 104–158; BP diastolic 68–91; PULSE 65–136; RESP 0–20; TEMP 83.8–99.3; O2SAT 90–100
--- NOTE | 2024-10-11 00:11 | DVHPN2 ---
Consult Progress Note Subjective Other Systems: Patient was seen and evaluated in follow up in the ICU. Patient is intubated and sedated on ventilator. 30% FiO2. 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 TROP 983. Chest x-ray shows bibasilar atelectasis or pneumonia. Objective vital signs Vital Sign Date Time Temp Pulse Resp B/P (MAP) Pulse Ox O2 Delivery O2 Flow Rate FiO2 10/10/24 18:48 98.8 74 16 126/77 (93) 97 209.8 10/10/24 18:20 30 10/10/24 18:20 Mechanical Ventilator Total Intake and Output 10/09/24 10/09/24 10/10/24 15:00 23:00 07:00 Intake Total 2370.25 ml 4956.477 ml 1112.073 ml Output Total 250 ml 125 ml 950 ml Balance 2120.25 ml 4831.477 ml 162.073 ml medications Current Medications Medications Dose Ordered Sig/Jose Route Start Time Stop Time Status Last Admin Dose Admin Norepinephrine Bitartrate 250 ml @ 3.75 mls/hr Q24H IV 10/09/24 09:45 10/09/24 17:11 18.75 MLS/HR Sodium Chloride 1,000 ml @ 100 mls/hr Q10H IV 10/09/24 12:45 10/10/24 18:00 100 MLS/HR Acetaminophen 650 mg Q6HP PRN PO 10/09/24 12:45 Nitroglycerin 0.4 mg Q5MINP PRN SL 10/09/24 12:45 Morphine Sulfate 2 mg Q30M PRN IV 10/09/24 13:30 Diagnostic Test (Pha) 1 strip Q6HR 10/09/24 18:00 10/10/24 17:20 1 STRIP Insulin Human Regular Q6HR SC 10/09/24 18:00 Dextrose 50 ml UD PRN IV 10/09/24 12:45 Tamsulosin HCl 0.4 mg QPM PO 10/09/24 18:00 10/10/24 17:20 0.4 MG Vancomycin HCl 0 ml @ 0 mls/hr UD IV 10/09/24 13:15 Cefepime HCl 50 ml @ 12.5 mls/hr Q12HR IV 10/09/24 22:00 10/10/24 08:52 12.5 MLS/HR Propofol 100 ml @ 1.767 mls/ hr Q24H IV 10/09/24 14:00 10/10/24 12:11 8.835 MLS/HR Fentanyl Citrate 250 ml @ 2.5 mls/hr Q24H IV 10/09/24 16:00 10/09/24 16:30 2.5 MLS/HR Enoxaparin Sodium 70 mg Q12HR SC 10/09/24 22:00 10/10/24 08:53 70 MG Vancomycin HCl 250 ml @ 200 mls/hr Q24H IV 10/10/24 15:00 10/10/24 15:03 200 MLS/HR Examination: GENERAL:Abnormal, HEENT:Normal, LUNGS:Abnormal (Mechanically ventilated)), CVS:Normal, NEURO:Abnormal (Chemically sedated) laboratory and microbiology Laboratory Tests 10/10/24 03:12 Test 10/10/24 03:12 Range/Units Serum Glucose 103 74-106 mg/dL Problem List/Assessment/Plan Problem List/Assessment/Plan Problem List/Assessment/Plan Benzodiazepine overdose. Atrial fibrillation with rapid ventricular response, stage unknown, now NSR. NSTEMI, likely type II secondary to above. Rule out structural heart disease. Hypertension. Dyslipidemia. History of left [id number] amputation. Plan/Recommendations Continued all current supportive medical care. Patient has been seen by Harriet Henry NP on my behalf, her and I discussed the plan with the patient. Transthoracic echocardiogram to evaluate cardiac function. Vasopressors for hemodynamic support. ?[id number] VASc score: 2 points. Therapeutic Lovenox while inpatient, transition to NOAC when appropriate. Hold beta-radha given the patient is on vasopressor support. Initiate BB when appropriate. Stopped Amiodarone. Pt now NSR----hold oral amio given elevated LFT's. Consider when LFT's normal . Monitor and replete electrolytes as needed, keep potassium greater than four and magnesium greater than two. Close Cardiac surveillance. Additional plan as per the hospital course. Plan discussed with: Other Date of Service: Oct 11, 2024 Billing Provider: RAI CRUZ MD Cardiology Common Codes: [id number] CARE 30-74 MIN RAI CRUZ MD Oct 10, 2024 20:22
[2024-10-11 04:00] LABS: Eosinophils # (auto) 0.2 10 ^3/uL (0-0.8); Hemoglobin 12.9 g/dL (13.5-17.5); Lymphocytes # (auto) 1.2 10 ^3/uL (0.4-5.4); Lymphocytes % (auto) 16.7 % (10.0-50.0); Monocytes # (auto) 0.4 10 ^3/uL (0-1.3); Nucleated Red Blood Cells % 0.1 %; Red Cell Distribution Width 15.3 % (11.8-14.3)
[2024-10-11 04:01] LABS: Basophils # (auto) 0 10 ^3/uL (0-0.2); Basophils % (auto) 0.6 % (0.0-2.0); Eosinophils % (auto) 2.7 % (0.0-7.0); Hematocrit 36.9 % (41.0-53.0); Mean Corpuscular Hemoglobin 35.6 pg (28.0-32.0); Mean Corpuscular Hgb Conc. 34.9 g/dL (32.0-36.0); Mean Corpuscular Volume 101.8 fL (80.0-100.0); Monocytes % (auto) 5.4 % (0.0-12.0); Neutrophils # (auto) 5.5 10 ^3/uL (1.6-8.6); Neutrophils % (auto) 74.6 % (37.0-80.0); Platelet Count (auto) 167 10^3/uL (140-450); Red Blood Cells 3.62 10^6/uL (4.5-5.90); White Blood Cell 7.4 10^3/uL (4.4-10.8)
[2024-10-11 04:15] LABS: Alkaline Phosphatase 66 U/L (46-116); Carbon Dioxide 21 mmol/L (20-31); Glucose 86 mg/dL (74-106); Potassium 3.8 mmol/L (3.5-5.1); Sodium 144 mmol/L (136-145)
[2024-10-11 04:16] LABS: Alanine Aminotransferase 604 U/L (7-40); Albumin 3.3 g/dL (3.2-4.8); Anion Gap 7 (5-15); Aspartate Aminotransferase 665 U/L (13-40); BUN/Creatinine Ratio 14.9 (10.0-20.0); Bilirubin, Total 0.3 mg/dL (0.2-1.0); Blood Urea Nitrogen 13 mg/dL (9-23); Calcium 8.3 mg/dL (8.7-10.4); Chloride 116 mmol/L (98-107); Total Protein 5.5 g/dL (5.7-8.2)
--- NOTE | 2024-10-11 05:33 | DVH ---
CHEST RADIOGRAPH Indication: rule out aspiration pneumonia Technique: Frontal view of the chest. Comparison: XY CHEST PORTABLE on DOS: 10/10/24, XY CHEST XRAY 1 VIEW on DOS: 10/09/24, XY CHEST PORTABLE on DOS: 10/09/24, XY CHEST PORTABLE on DOS: 10/10/24 FINDINGS: LUNGS AND PLEURAL SPACES: Bibasilar atelectasis or pneumonia. No pneumothorax. HEART: Unremarkable. No cardiomegaly. MEDIASTINUM: Unremarkable. Normal mediastinal contour. BONES/JOINTS: Unremarkable. No acute fracture. TUBES, LINES AND DEVICES: The endotracheal tube (ETT) is in satisfactory position. Right internal jugular central venous catheter tip in the superior vena cava. Enteric tube tip cannot be seen but i s below the diaphragm. IMPRESSION: Bibasilar atelectasis or pneumonia.
[2024-10-11 09:32] LABS: Base Excess -7.9 mmol/L (-2.0-3.0)
[2024-10-11] MEDS: CEFEPIME 1GM/ 50ML 50 ML IV SCH (12:29)
--- NOTE | 2024-10-11 13:35 | DVHPN2 ---
Subjective Intubated and sedated On Diprivan and fentanyl drips FiO2 30% and PEEP of 5 Changes from previous H/P or p: Changes Objective Vitals Vital Signs Date Time Temp Pulse Resp B/P (MAP) Pulse Ox O2 Delivery O2 Flow Rate FiO2 10/11/24 12:05 69 16 104/74 (84) 95 30 10/11/24 12:00 Mechanical Ventilator+ 10/11/24 10:19 98.4 98.4 Intake/Output Intake and Output 10/11/24 07:00 Intake Total 3138.656 ml Output Total 700 ml Balance 2438.656 ml Intake Oral 0 ml IV Total 3108.656 ml Tube Feeding 30 ml Output Urine Total 700 ml Stool Total 0 ml General Appearance: Other (Intubated and sedated) Lungs: Clear to auscultation, Normal air movement Cardiovascular: Regular rate, Normal S1, Normal S2 Abdomen: Normal bowel sounds, Soft, No tenderness Extremities: No edema Medications Current Medications Medications Dose Ordered Sig/Jose Route Start Time Stop Time Status Last Admin Dose Admin Norepinephrine Bitartrate 250 ml @ 3.75 mls/hr Q24H IV 10/09/24 09:45 10/09/24 17:11 18.75 MLS/HR Sodium Chloride 1,000 ml @ 100 mls/hr Q10H IV 10/09/24 12:45 10/11/24 13:23 100 MLS/HR Acetaminophen 650 mg Q6HP PRN PO 10/09/24 12:45 Nitroglycerin 0.4 mg Q5MINP PRN SL 10/09/24 12:45 Morphine Sulfate 2 mg Q30M PRN IV 10/09/24 13:30 Diagnostic Test (Pha) 1 strip Q6HR 10/09/24 18:00 10/11/24 11:01 1 STRIP Insulin Human Regular Q6HR SC 10/09/24 18:00 Dextrose 50 ml UD PRN IV 10/09/24 12:45 Tamsulosin HCl 0.4 mg QPM PO 10/09/24 18:00 10/10/24 17:20 0.4 MG Vancomycin HCl 0 ml @ 0 mls/hr UD IV 10/09/24 13:15 Propofol 100 ml @ 1.767 mls/ hr Q24H IV 10/09/24 14:00 10/11/24 10:19 10.602 MLS/HR Fentanyl Citrate 250 ml @ 2.5 mls/hr Q24H IV 10/09/24 16:00 10/09/24 16:30 2.5 MLS/HR Enoxaparin Sodium 70 mg Q12HR SC 10/09/24 22:00 10/11/24 07:42 70 MG Vancomycin HCl 250 ml @ 200 mls/hr Q24H IV 10/10/24 15:00 10/10/24 15:03 200 MLS/HR Cefepime HCl 50 ml @ 12.5 mls/hr Q8HR IV 10/11/24 14:00 10/11/24 12:29 12.5 MLS/HR Laboratory Results Laboratory Tests 10/11/24 03:13 Chemistry Test 10/11/24 03:13 Albumin 3.3 g/dL (3.2-4.8) Calcium Level 8.3 mg/dL (8.7-10.4) L Total Protein 5.5 g/dL (5.7-8.2) L LFT Test 10/11/24 03:13 Alanine Aminotransferase (ALT) 604 U/L (7-40) H Alkaline Phosphatase 66 U/L (46-116) Aspartate Amino Transferase (AST) 665 U/L (13-40) H Total Bilirubin 0.3 mg/dL (0.2-1.0) Urinalysis Test 10/09/24 09:38 Urine Color Colorless (Yellow) Urine Clarity Clear (Clear) Urine pH 6.0 (5.0-9.0) Urine Specific [place] 1.006 (1.001-1.035) Urine Protein Negative (Negative) Urine Ketones Negative (Negative) Urine Blood Negative /uL (Negative) Urine Nitrite Negative (Negative) Urine Bilirubin Negative (Negative) Urine Urobilinogen Normal mg/dL (Negative) Urine Leukocyte Esterase Negative /uL (Negative) Urine RBC <1 /hpf (0 - 3) Urine Microscopic WBC < 1 /HPF (0-3) Urine Squamous Epithelial Cells None seen /hpf (<5) Urine Bacteria Few /hpf (None Seen) H Urine Glucose Normal mg/dL (Normal) Blood Gas Results Test 10/11/24 09:00 Arterial Blood pH 7.353 (7.350-7.450) FiO2 % 30.0 Microbiology Microbiology Date/Time Source Procedure Growth Status 10/09/24 17:52 Nose MRSA Screen - Final Complete 10/09/24 09:17 Blood Blood Culture - Preliminary NO GROWTH AFTER 48 HOURS OF INCUBATION. Resulted 10/09/24 09:12 Sputum Gram Stain - Final Resulted 10/09/24 09:12 Sputum Respiratory Culture - Preliminary Resulted Assessment/Plan Assessment/Plan Acute metabolic encephalopathy due to benzodiazepine overdose Atrial fibrillation with rapid ventricular response NSTEMI, likely type II Hyponatremia Hypokalemia Acute kidney injury due to vasomotor nephropathy History of anxiety History of left AKA Lactic acidosis Acute hypoxic respiratory failure Plan IV fluids NS IV antibiotics: Cefepime and vancomycin Sedation as needed DVT prophylaxis: Lovenox Add Protonix IV for GI prophylaxis Monitor closely Plan discussed with: Other Date of Service: Oct 11, 2024 Billing Provider: PABLO WILLINGHAM MD Common Visit Codes: [id number] CARE 30-74 MIN PABLO WILLINGHAM MD Oct 11, 2024 13:35
[2024-10-11] MEDS: PANTOPRAZOLE 40 MG/10 ML VIAL INJ IV ONE (14:00)
--- NOTE | 2024-10-11 19:19 | DVHINCON2 ---
Date of service: Oct 11, 2024 Referring Physician Heather Chin MD Reason for Consultation Acute hypoxic respiratory failure requiring mechanical ventilator History of Present Illness A 74-year-old man with past medical history of hypertension, dyslipidemia, BPH, anxiety, previous suicidal attempts and medication overdose as well as hx of left AKA who presented to the ED by EMS on 10/09/24 after being found down by family member; last known well time was the night prior. Patient was apparently found unresponsive by family with an empty bottle of temazepam near him, but unclear exactly how many pills he may have taken. There is also suspicion for possible calcium channel radha overdose given he is prescribed calcium channel blockers at home. Cardiology was consulted for elevated troponin level and patient admitted for further care. Pulmonary consultation is requested for evaluation and management of acute hypoxic respiratory failure requiring mechanical ventilator. Review of Systems: Unable to obtain d/t intubated status Past Medical History: Hypertension, dyslipidemia, BPH, anxiety, previous suicidal attempts Past Surgical History: Hx of left AKA Medications: Reviewed. Allergies: No known drug allergies. Family History: No family history of premature CAD. No family history of lung disorders. Social History: Nonsmoker. No alcohol or illicit drug use. Allergies: Coded Allergies: UNOBTAINABLE (Unverified , 10/09/24) Home Meds Reported Medications Tamsulosin Hcl (Tamsulosin Hcl) 0.4 Mg Cap, 1 CAP PO DAILY 10/09/24 Amlodipine Besylate (Amlodipine Besylate) 5 Mg Tab, 1 TAB PO DAILY 10/09/24 Metoprolol Succinate (Metoprolol Succinate Er) 25 Mg Tab, 1 TAB PO DAILY 10/09/24 Current Medications Current Medications Medications (Trade) Dose Ordered Sig/Jose Route PRN Reason Start Time Stop Time Status Last Admin Cefepime HCl 50 ml @ 12.5 mls/hr Q8HR IV 10/11/24 14:00 10/11/24 12:29 Pantoprazole Sodium (Protonix) 40 mg DAILY IV 10/12/24 10:00 Enteral Nutritional Formula (Vital AF 1.2 Konstantin) 1,000 ml 45ML/HR GT 10/11/24 13:45 Vital Signs Vital Signs Date Time Temp Pulse Resp B/P (MAP) Pulse Ox O2 Delivery O2 Flow Rate FiO2 10/11/24 18:48 66 16 131/76 (94) 98 30 10/11/24 17:40 Mechanical Ventilator+ 10/11/24 16:49 97.3 97.3 Physical Exam Gen.: Patient lying in bed in medical ICU. Sedated, intubated on mechanical ventilator. Head: Normocephalic, atraumatic. Eyes: PERRLA. Ears: Normal external anatomy. Throat: Endotracheal tube and orogastric tube in place. Neck: Supple, trachea midline. Chest: Transmitted breath sounds bilaterally. Decreased air entry bilaterally. No wheezing. Bibasilar crackles. Cardiovascular: Positive S1, positive S2. Regular rate and rhythm. Abdomen: Positive bowel sounds in all 4 quadrants. Soft, nontender, nondiste nded. : Andrade in place. Normal external genitalia. Rectal: Deferred. Skin: Warm, dry. Intact. Extremities: 2+ radial pulses bilaterally. No lower extremity edema. Left AKA Neuro: Sedated. Labs/Diagnostic Data Labs Test 10/11/24 16:39 10/11/24 09:00 10/11/24 03:13 10/10/24 17:46 Range/Units POC Glucose 84 70-106 mg/dl Blood Gas Specimen Type Arterial Blood Gas Sample Site Left radial Blood Gas Patient Temperature 37.0 Arterial Blood Date Drawn [id number] Arterial Blood pH 7.353 7.350-7.450 Arterial Blood Partial Pressure CO2 30.1 L 35.0-48.0 mmHg Arterial Blood Partial Pressure O2 73.5 L 83.0-108.0 mmHg Arterial Blood HCO3 16.4 L 21.0-28.0 mmol/L Arterial Blood Oxygen Saturation 93.3 L 94.0-98.0 % Arterial Blood Base Excess -7.9 L -2.0-3.0 mmol/L Arterial Blood Oxyhemoglobin 93.1 L 94.0-98.0 % Arterial Blood Carboxyhemoglobin 0.1 L 0.5-1.5 % Arterial Blood Methemoglobin 0.1 0.0-1.5 % Jak Test Modified Blood Gas Total Hemoglobin 13.40 L 13.5-17.5 g/dL Blood Gas Set Respiration Rate 16.0 Blood Gas Modality Vent - ac FiO2 % 30.0 Blood Gas Tidal Volume 500.0 Blood Gas PEEP or CPAP 5.0 White Blood Count 7.4 4.4-10.8 10^3/uL Red Blood Count 3.62 L 4.5-5.90 10^6/uL Hemoglobin 12.9 L 13.5-17.5 g/dL Hematocrit 36.9 L 41.0-53.0 % Mean Corpuscular Volume 101.8 H 80.0-100.0 fL Mean Corpuscular Hemoglobin 35.6 H 28.0-32.0 pg Mean Corpuscular Hemoglobin Concent 34.9 32.0-36.0 g/dL Red Cell Distribution Width 15.3 H 11.8-14.3 % Platelet Count 167 140-450 10^3/uL Mean Platelet Volume 7.8 6.9-10.8 fL Neutrophils (%) (Auto) 74.6 37.0-80.0 % Lymphocytes (%) (Auto) 16.7 10.0-50.0 % Monocytes (%) (Auto) 5.4 0.0-12.0 % Eosinophils (%) (Auto) 2.7 0.0-7.0 % Basophils (%) (Auto) 0.6 0.0-2.0 % Neutrophils # (Auto) 5.5 1.6-8.6 10 ^3/uL Lymphocytes # (Auto) 1.2 0.4-5.4 10 ^3/uL Monocytes # (Auto) 0.4 0-1.3 10 ^3/uL Eosinophils # (Auto) 0.2 0-0.8 10 ^3/uL Basophils # (Auto) 0 0-0.2 10 ^3/uL Nucleated Red Blood Cells 0.1 % Sodium Level 144 136-145 mmol/L Potassium Level 3.8 3.5-5.1 mmol/L Chloride Level 116 H 98-107 mmol/L Carbon Dioxide Level 21 20-31 mmol/L Anion Gap 7 5-15 Blood Urea Nitrogen 13 9-23 mg/dL Creatinine 0.87 0.700-1.30 mg/dL Glomerular Filtration Rate Calc 92 >90 mL/min BUN/Creatinine Ratio 14.9 10.0-20.0 Serum Glucose 86 74-106 mg/dL Lactic Acid Level 1.1 0.4-2.0 mmol/L Calcium Level 8.3 L 8.7-10.4 mg/dL Total Bilirubin 0.3 0.2-1.0 mg/dL Aspartate Amino Transferase (AST) 665 H 13-40 U/L Alanine Aminotransferase (ALT) 604 H 7-40 U/L Alkaline Phosphatase 66 46-116 U/L Total Protein 5.5 L 5.7-8.2 g/dL Albumin 3.3 3.2-4.8 g/dL Troponin I High Sensitivity 983 *H </=54 ng/L Test 10/10/24 03:12 10/09/24 14:00 10/09/24 10:23 10/09/24 10:20 Range/Units Triglycerides Level 120 < 150 mg/dL Cholesterol Level 128 < 200 mg/dL LDL Cholesterol 66 < 100 mg/dL HDL Cholesterol 51 40-59 mg/dL Thyroid Stimulating Hormone (TSH) 0.98 0.55-4.78 uIU/mL Random Vancomycin Level 9.9 5-10 ug/mL Salicylates Level < 3.0 -30 mg/dL Acetaminophen Level < 2.0 L 10.0-20.0 UG/ML Blood Gas Critical Value Read Back Yes Blood Gas Notified Whom millicent Cates md Blood Gas Notified Time [id number] Blood Gas Notified By Restaurant Worker michael [place] Magnesium Level 2.1 1.6-2.6 mg/dL Test 10/09/24 09:38 10/09/24 09:17 Range/Units Urine Color Colorless Yellow Urine Clarity Clear Clear Urine pH 6.0 5.0-9.0 Urine Specific [place] 1.006 1.001-1.035 Urine Protein Negative Negative Urine Ketones Negative Negative Urine Blood Negative Negative /uL Urine Nitrite Negative Negative Urine Bilirubin Negative Negative Urine Urobilinogen Normal Negative mg/dL Urine Leukocyte Esterase Negative Negative /uL Urine RBC <1 0 - 3 /hpf Urine Microscopic WBC < 1 0-3 /HPF Urine Squamous Epithelial Cells None seen <5 /hpf Urine Bacteria Few H None Seen /hpf Urine Glucose Normal Normal mg/dL Hemoglobin A1c 5.2 <5.7 % A1C Microbiology Date/Time Source Procedure Growth Status 10/09/24 17:52 Nose MRSA Screen - Final Complete 10/09/24 09:17 Blood Blood Culture - Preliminary NO GROWTH AFTER 48 HOURS OF INCUBATION. Resulted 10/09/24 09:12 Sputum Gram Stain - Final Resulted 10/09/24 09:12 Sputum Respiratory Culture - Preliminary Resulted Assessment Impression: Acute hypoxic respiratory failure On mechanical ventilator Medication overdose Suicide attempts Elevated troponin Left above-knee amputation Atelectasis Plan: s/p intubation on mechanical ventilator. CXR image and report reviewed. Devices in place. Bibasilar atelectasis or pneumonia. ABG reviewed, compensated. On AC mode; RR 16, VT 500, PEEP 5, FiO2 30% Titrate FIO2 to keep O2 saturation above 90%. VAP bundle. Daily ABG and CXR while intubated Sedate for ventilator synchrony - On Propofol/Versed/Fentanyl IV fluids with NS at 100 ml/hr. Elevated troponin - plan for cardiac cath on Sunday. Follow up Cardiology recommendations Follow up Psychiatry recommendations Continue antibiotics. F/u cultures. Pressors as necessary for hemodynamic support Titrate to keep mean arterial pressure greater than 65 mmHg. Monitor renal function Monitor electrolytes. Supplement as necessary. Monitor ins and outs. Maintain euvolemia. GI prophylaxis. DVT prophylaxis - therapeutic Lovenox. Prognosis: Poor given patient's multiple co-morbidities. Condition: Critical Rest of plan per hospitalist and other consultants. A total of 35 minutes of critical care time was spent reviewing the patient record, examining the patient, making a diagnostic and therapeutic plan, discussing this plan with the medical personnel, following up on diagnostic studies and following the patient for clinical stability excluding any and all procedures. At least 50% of this time was spent in direct, [id number] contact. Thank you, Dr. Chin, for allowing me to participate in this patient's care. Further recommendations will depend on the patient's clinical course. Please do not hesitate to contact me if you have any questions or concerns. This medical document was created using an electronic medical record system with [email or web address] dictation system. Although these documentations are being carefully reviewed, there may still be some phonetic and typographical changes. The errors are purely typographical, due to imperfection on the software program, and do not reflect any compromise in the patient's medical care. Plan discussed with: Other (THERESA Ruiz/Dr. Chin) RUBIN VOGEL MD Oct 11, 2024 19:19
[2024-10-11] MEDS: Vital AF 1.2 Cal 1 liter bottle GT SCH (21:12)
[2024-10-12] VITALS (111 sets, daily range): BP systolic 95–147; BP diastolic 53–94; PULSE 60–110; RESP 0–18; TEMP 98.3–98.9; O2SAT 92–99
--- NOTE | 2024-10-12 00:14 | DVHPN2 ---
Progress Note - Dictate Date Seen: Oct 11, 2024 Has the PT tested + for MRSA If YES, has PT been informed?: No Medical Necessity Reason Pt with a Central, PICC or Fol: Yes The following are medically ne: Central Line Subjective Patient was seen and evaluated in follow up in the ICU. Patient is intubated and sedated on ventilator. 30% FiO2. CA 8.3, AST 665, ALT 604. MRSA is negative. Prelim blood cultures are negative. Chest x-ray shows bibasilar atelectasis or pneumonia. vital signs Vital Sign Date Time Temp Pulse Resp B/P (MAP) Pulse Ox O2 Delivery O2 Flow Rate FiO2 10/11/24 20:19 71 16 136/80 (98) 97 10/11/24 20:11 30 10/11/24 20:04 98.3 98.3 10/11/24 20:00 Mechanical Ventilator+ Total Intake and Output 10/10/24 10/10/24 10/11/24 15:00 23:00 07:00 Intake Total 1096 ml 1182.840 ml 859.816 ml Output Total 250 ml 450 ml Balance 1096 ml 932.840 ml 409.816 ml medications Current Medications Medications Dose Ordered Sig/Jose Route Start Time Stop Time Status Last Admin Dose Admin Norepinephrine Bitartrate 250 ml @ 3.75 mls/hr Q24H IV 10/09/24 09:45 10/09/24 17:11 18.75 MLS/HR Sodium Chloride 1,000 ml @ 100 mls/hr Q10H IV 10/09/24 12:45 10/11/24 13:23 100 MLS/HR Acetaminophen 650 mg Q6HP PRN PO 10/09/24 12:45 Nitroglycerin 0.4 mg Q5MINP PRN SL 10/09/24 12:45 Morphine Sulfate 2 mg Q30M PRN IV 10/09/24 13:30 Diagnostic Test (Pha) 1 strip Q6HR 10/09/24 18:00 10/11/24 16:43 1 STRIP Insulin Human Regular Q6HR SC 10/09/24 18:00 Dextrose 50 ml UD PRN IV 10/09/24 12:45 Tamsulosin HCl 0.4 mg QPM PO 10/09/24 18:00 10/11/24 16:43 0.4 MG Vancomycin HCl 0 ml @ 0 mls/hr UD IV 10/09/24 13:15 Propofol 100 ml @ 1.767 mls/ hr Q24H IV 10/09/24 14:00 10/11/24 18:14 10.602 MLS/HR Fentanyl Citrate 250 ml @ 2.5 mls/hr Q24H IV 10/09/24 16:00 10/09/24 16:30 2.5 MLS/HR Enoxaparin Sodium 70 mg Q12HR SC 10/09/24 22:00 10/11/24 07:42 70 MG Vancomycin HCl 250 ml @ 200 mls/hr Q24H IV 10/10/24 15:00 10/11/24 14:00 200 MLS/HR Cefepime HCl 50 ml @ 12.5 mls/hr Q8HR IV 10/11/24 14:00 10/11/24 12:29 12.5 MLS/HR Pantoprazole Sodium 40 mg DAILY IV 10/12/24 10:00 Enteral Nutritional Formula 1,000 ml 45ML/HR GT 10/11/24 13:45 10/11/24 21:12 1,000 ML objective GENERAL: Ill appearing, intubated on ventilator. EYES: PERRL, EOMI. Anicteric. HENT: Moist mucous membranes. LUNGS: Decreased breath sounds. CARDIOVASCULAR: Regular rate and rhythm. ABDOMEN: Soft, nontender and nondistended. EXTREMITIES: No edema. SKIN: Warm, dry. laboratory and microbiology Laboratory Tests 10/11/24 03:13 Test 10/11/24 03:13 Range/Units Serum Glucose 86 74-106 mg/dL Problem List Benzodiazepine overdose. Atrial fibrillation with rapid ventricular response, stage unknown, now NSR. NSTEMI, likely type II secondary to above. Rule out structural heart disease. Hypertension. Dyslipidemia. History of left whril-fwa-darj amputation. Assessment/Plan Continued all current supportive medical care. IV antibiotics as ordered. DVT and GI prophylactics. Morphine for pain management. Vasopressors for hemodynamic support. Additional plan as per the hospital course. Critical care time of 45 minutes provided to include time spent evaluation of patient at bedside, when appropriate patient/family education for diagnosis, treatment plan, review of pertinent medical information and discussion of care with specialty providers and PCP. Mechanical ventilator parameters, treatment and adjustments have personally been reviewed by me and treatment plan by cloth bin packer has also been reviewed. Dietary Evaluation Review Comments: 1) Initiate MVI @ 1 tb qd 2) Consider Vitamin C @ 500 mg bid and zinc sulfate @ 220 mg qd for 7-10 days 3) If patient remains NPO > 7 days, consider EN/TPN to meet at least 75% of estimated daily needs 4) If GI is preferred, consider Vital AF 1.2 @ 45 mL/hr goal rate as tolerated. TF regimen will provide 1576 kcals (including Propofol), 81g Pro, and 903 mL free H2O per 24 hrs. Goal rate will meet ~93% estimated energy needs and ~74% estimated protein neeeds 5) Advance to regular diet when medically feasible, pending [employer] approval 6) Follow-up with child welfare social worker regarding suicidal ideation 7) Follow-up with cardiology and pulmonology 8) Continue to monitor I&O, labs, and skin integrity Expected Outcomes/Goals: 1) patient to receive nutrition support within 7 days of NPO status 2) labs to improve 3) diet to advance 4) f/u in 2-3 days Plan discussed with: RAI Motley MD Oct 11, 2024 21:31
[2024-10-12 04:16] LABS: Basophils # (auto) 0.1 10 ^3/uL (0-0.2); Eosinophils # (auto) 0.3 10 ^3/uL (0-0.8); Monocytes # (auto) 0.5 10 ^3/uL (0-1.3); Neutrophils # (auto) 6.6 10 ^3/uL (1.6-8.6)
[2024-10-12 04:20] LABS: Basophils % (auto) 0.8 % (0.0-2.0); Eosinophils % (auto) 3.9 % (0.0-7.0); Hematocrit 42.3 % (41.0-53.0); Hemoglobin 14.7 g/dL (13.5-17.5); Lymphocytes % (auto) 11.6 % (10.0-50.0); Mean Corpuscular Hemoglobin 35.4 pg (28.0-32.0); Mean Corpuscular Hgb Conc. 34.7 g/dL (32.0-36.0); Monocytes % (auto) 5.7 % (0.0-12.0); Nucleated Red Blood Cells % 0.2 %; Platelet Count (auto) 188 10^3/uL (140-450); Red Blood Cells 4.15 10^6/uL (4.5-5.90); Red Cell Distribution Width 15.5 % (11.8-14.3); White Blood Cell 8.4 10^3/uL (4.4-10.8)
[2024-10-12 04:28] LABS: Alanine Aminotransferase 456 U/L (7-40); Albumin 3.5 g/dL (3.2-4.8); Alkaline Phosphatase 77 U/L (46-116); Anion Gap 12 (5-15); Aspartate Aminotransferase 310 U/L (13-40); BUN/Creatinine Ratio 10.5 (10.0-20.0); Bilirubin, Total 0.3 mg/dL (0.2-1.0); Blood Urea Nitrogen 8 mg/dL (9-23); Carbon Dioxide 19 mmol/L (20-31); Chloride 111 mmol/L (98-107); Glucose 82 mg/dL (74-106); Magnesium 1.5 mg/dL (1.6-2.6); Potassium 3.6 mmol/L (3.5-5.1); Sodium 142 mmol/L (136-145); Total Protein 6.2 g/dL (5.7-8.2)
[2024-10-12 06:14] LABS: Base Excess -9.7 mmol/L (-2.0-3.0)
[2024-10-12] MEDS: PANTOPRAZOLE 40 MG/10 ML VIAL INJ IV SCH (07:07)
[2024-10-12] MEDS: POTASSIUM EFFERVESENT TAB 25 MEQ GT ONE (10:39)
[2024-10-12] MEDS: MAGNESIUM SULFATE 1GM/100ML 100 ML IV SCH (10:40)
--- NOTE | 2024-10-12 12:14 | DVHPN2 ---
Subjective Intubated and sedated On Diprivan and fentanyl drips FiO2 30% and PEEP of 5 Magnesium is low at 1.5 and potassium is 3.6 Changes from previous H/P or p: Changes Objective Vitals Vital Signs Date Time Temp Pulse Resp B/P (MAP) Pulse Ox O2 Delivery O2 Flow Rate FiO2 10/12/24 11:53 16 98 Mechanical Ventilator+ 30 30 10/12/24 11:53 78 10/12/24 11:49 106/60 (75) 10/12/24 09:04 98.3 98.3 Intake/Output Intake and Output 10/12/24 07:00 Intake Total 3079.638 ml Output Total 2026 ml Balance 1053.638 ml Intake Oral 50 ml IV Total 3029.638 ml Tube Feeding 0 ml Output Urine Total 2025 ml Stool Total 1 ml General Appearance: Other (Intubated and sedated) Lungs: Clear to auscultation, Normal air movement Cardiovascular: Regular rate, Normal S1, Normal S2 Abdomen: Normal bowel sounds, Soft, No tenderness Extremities: No edema Medications Current Medications Medications Dose Ordered Sig/Jose Route Start Time Stop Time Status Last Admin Dose Admin Norepinephrine Bitartrate 250 ml @ 3.75 mls/hr Q24H IV 10/09/24 09:45 10/09/24 17:11 18.75 MLS/HR Sodium Chloride 1,000 ml @ 100 mls/hr Q10H IV 10/09/24 12:45 10/12/24 09:38 100 MLS/HR Acetaminophen 650 mg Q6HP PRN PO 10/09/24 12:45 Nitroglycerin 0.4 mg Q5MINP PRN SL 10/09/24 12:45 Morphine Sulfate 2 mg Q30M PRN IV 10/09/24 13:30 Diagnostic Test (Pha) 1 strip Q6HR 10/09/24 18:00 10/12/24 10:49 1 STRIP Insulin Human Regular Q6HR SC 10/09/24 18:00 Dextrose 50 ml UD PRN IV 10/09/24 12:45 Tamsulosin HCl 0.4 mg QPM PO 10/09/24 18:00 10/11/24 16:43 0.4 MG Vancomycin HCl 0 ml @ 0 mls/hr UD IV 10/09/24 13:15 Propofol 100 ml @ 1.767 mls/ hr Q24H IV 10/09/24 14:00 10/12/24 06:54 14.136 MLS/HR Fentanyl Citrate 250 ml @ 2.5 mls/hr Q24H IV 10/09/24 16:00 10/12/24 02:37 7.5 MLS/HR Enoxaparin Sodium 70 mg Q12HR SC 10/09/24 22:00 10/12/24 08:05 70 MG Vancomycin HCl 250 ml @ 200 mls/hr Q24H IV 10/10/24 15:00 10/11/24 14:00 200 MLS/HR Cefepime HCl 50 ml @ 12.5 mls/hr Q8HR IV 10/11/24 14:00 10/12/24 06:59 12.5 MLS/HR Pantoprazole Sodium 40 mg DAILY IV 10/12/24 10:00 10/12/24 07:07 40 MG Enteral Nutritional Formula 1,000 ml 45ML/HR GT 10/11/24 13:45 10/11/24 21:12 1,000 ML Magnesium Sulfate/ Dextrose 100 ml @ 100 mls/hr Q1HR IV 10/12/24 11:00 10/12/24 12:59 10/12/24 11:46 100 MLS/HR Laboratory Results Laboratory Tests 10/12/24 03:15 Chemistry Test 10/12/24 03:15 Albumin 3.5 g/dL (3.2-4.8) Calcium Level 8.0 mg/dL (8.7-10.4) L Magnesium Level 1.5 mg/dL (1.6-2.6) L Total Protein 6.2 g/dL (5.7-8.2) LFT Test 10/12/24 03:15 Alanine Aminotransferase (ALT) 456 U/L (7-40) H Alkaline Phosphatase 77 U/L (46-116) Aspartate Amino Transferase (AST) 310 U/L (13-40) H Total Bilirubin 0.3 mg/dL (0.2-1.0) Urinalysis Test 10/09/24 09:38 Urine Color Colorless (Yellow) Urine Clarity Clear (Clear) Urine pH 6.0 (5.0-9.0) Urine Specific [place] 1.006 (1.001-1.035) Urine Protein Negative (Negative) Urine Ketones Negative (Negative) Urine Blood Negative /uL (Negative) Urine Nitrite Negative (Negative) Urine Bilirubin Negative (Negative) Urine Urobilinogen Normal mg/dL (Negative) Urine Leukocyte Esterase Negative /uL (Negative) Urine RBC <1 /hpf (0 - 3) Urine Microscopic WBC < 1 /HPF (0-3) Urine Squamous Epithelial Cells None seen /hpf (<5) Urine Bacteria Few /hpf (None Seen) H Urine Glucose Normal mg/dL (Normal) Blood Gas Results Test 10/12/24 06:08 Arterial Blood pH 7.252 (7.350-7.450) FiO2 % 30.0 Microbiology Microbiology Date/Time Source Procedure Growth Status 10/09/24 17:52 Nose MRSA Screen - Final Complete 10/09/24 09:17 Blood Blood Culture - Preliminary NO GROWTH AFTER 72 HOURS OF INCUBATION. Resulted 10/09/24 09:12 Sputum Gram Stain - Final Resulted 10/09/24 09:12 Sputum Respiratory Culture - Preliminary Resulted Assessment/Plan Assessment/Plan Acute metabolic encephalopathy due to benzodiazepine overdose Atrial fibrillation with rapid ventricular response NSTEMI, likely type II Hyponatremia Hypokalemia Acute kidney injury due to vasomotor nephropathy History of anxiety History of left AKA Lactic acidosis Acute hypoxic respiratory failure Plan IV fluids NS IV antibiotics: Cefepime and vancomycin Sedation as needed DVT prophylaxis: Lovenox Add Protonix IV for GI prophylaxis Monitor closely 10/12/2024: Hypomagnesemia: Replace IV Hypo hypokalemia: Replace via NG tube Sedation as needed Continue cefepime and vancomycin Plan discussed with: Other My Orders Orders - PABLO WILLINGHAM MD Procedure Category Date Status Time Pantoprazole PHA 10/12/24 In Process (Protonix) 10:00 Tube Feeding DIET 10/11/24 Transmitted Dinner Nutritional PHA 10/11/24 In Process Supplements (Vital Af 13:45 Magnesium Sulfate PHA 10/12/24 In Process 1gm/100ml 11:00 Date of Service: Oct 12, 2024 Billing Provider: PABLO WILLINGHAM MD Common Visit Codes: [id number] CARE 30-74 MIN PABLO WILLINGHAM MD Oct 12, 2024 12:14
--- NOTE | 2024-10-12 20:13 | DVHPN2 ---
Progress Note - Dictate Date Seen: Oct 12, 2024 Has the PT tested + for MRSA If YES, has PT been informed?: No Medical Necessity Reason Pt with a Central, PICC or Fol: Yes The following are medically ne: Central Line, Valles Catheter Reason for valles catheter: Strict I&O Subjective Patient seen and examined at bedside. Sedated, intubated on mechanical ventilator. Overnight events reviewed. vital signs Vital Sign Date Time Temp Pulse Resp B/P (MAP) Pulse Ox O2 Delivery O2 Flow Rate FiO2 10/12/24 18:36 62 16 102/58 (73) 97 30 10/12/24 18:00 Mechanical Ventilator+ 10/12/24 14:04 98.9 98.9 Total Intake and Output 10/11/24 10/11/24 10/12/24 15:00 23:00 07:00 Intake Total 1072.316 ml 999.816 ml 1007.506 ml Output Total 1026 ml 1000 ml Balance 1072.316 ml -26.184 ml 7.506 ml medications Current Medications Medications Dose Ordered Sig/Jose Route Start Time Stop Time Status Last Admin Dose Admin Norepinephrine Bitartrate 250 ml @ 3.75 mls/hr Q24H IV 10/09/24 09:45 10/09/24 17:11 18.75 MLS/HR Sodium Chloride 1,000 ml @ 100 mls/hr Q10H IV 10/09/24 12:45 10/12/24 20:10 100 MLS/HR Acetaminophen 650 mg Q6HP PRN PO 10/09/24 12:45 Nitroglycerin 0.4 mg Q5MINP PRN SL 10/09/24 12:45 Morphine Sulfate 2 mg Q30M PRN IV 10/09/24 13:30 Diagnostic Test (Pha) 1 strip Q6HR 10/09/24 18:00 10/12/24 17:14 1 STRIP Insulin Human Regular Q6HR SC 10/09/24 18:00 Dextrose 50 ml UD PRN IV 10/09/24 12:45 Tamsulosin HCl 0.4 mg QPM PO 10/09/24 18:00 10/12/24 17:18 0.4 MG Vancomycin HCl 0 ml @ 0 mls/hr UD IV 10/09/24 13:15 Propofol 100 ml @ 1.767 mls/ hr Q24H IV 10/09/24 14:00 10/12/24 13:01 14.136 MLS/HR Fentanyl Citrate 250 ml @ 2.5 mls/hr Q24H IV 10/09/24 16:00 10/12/24 02:37 7.5 MLS/HR Enoxaparin Sodium 70 mg Q12HR SC 10/09/24 22:00 10/12/24 08:05 70 MG Cefepime HCl 50 ml @ 12.5 mls/hr Q8HR IV 10/11/24 14:00 10/12/24 13:01 12.5 MLS/HR Pantoprazole Sodium 40 mg DAILY IV 10/12/24 10:00 10/12/24 07:07 40 MG Enteral Nutritional Formula 1,000 ml 45ML/HR GT 10/11/24 13:45 10/11/24 21:12 1,000 ML Vancomycin HCl 250 ml @ 200 mls/hr Q16H IV 10/13/24 07:00 objective Gen.: Patient lying in bed in medical ICU. Sedated, intubated on mechanical ventilator. Head: Normocephalic, atraumatic. Eyes: PERRLA. Ears: Normal external anatomy. Throat: Endotracheal tube and orogastric tube in place. Neck: Supple, trachea midline. Chest: Transmitted breath sounds bilaterally. Decreased air entry bilaterally. No wheezing. Bibasilar crackles. Cardiovascular: Positive S1, positive S2. Regular rate and rhythm. Abdomen: Positive bowel sounds in all 4 quadrants. Soft, nontender, nondistended. : Valles in place. Normal external genitalia. Rectal: Deferred. Skin: Warm, dry. Intact. Extremities: 2+ radial pulses bilaterally. No lower extremity edema. Left AKA Neuro: Sedated. laboratory and microbiology Laboratory Tests 10/12/24 03:15 Test 10/12/24 03:15 Range/Units Serum Glucose 82 74-106 mg/dL Assessment/Plan Impression: Acute hypoxic respiratory failure On mechanical ventilator Medication overdose Suicide attempts Elevated troponin Left above-knee amputation Events: Remains on vent support On AC mode; RR 16, VT 500, PEEP 5, FiO2 30% Sedated on Propofol, Fentanyl Plan for cardiac catheterization in AM. Follow up Cardiology recommendations. IV fluids with NS at 100 ml/hr. Continue antibiotics Tube feeds for nutritional support Monitor renal function Monitor electrolytes. Supplement as necessary. K, mag supplementation ABG reviewed, notable for acidemia CXR done yesterday. Devices in place. Bibasilar atelectasis or pneumonia. Labs and imaging reviewed. Rest of plan as noted below. Plan: s/p intubation on mechanical ventilator. On AC mode; RR 16, VT 500, PEEP 5, FiO2 30% Titrate FIO2 to keep O2 saturation above 90%. VAP bundle. Daily ABG and CXR while intubated Sedate for ventilator synchrony IV fluids with NS at 100 ml/hr. Elevated troponin - plan for cardiac cath Follow up Cardiology recommendations Follow up Psychiatry recommendations Continue antibiotics. F/u cultures. Pressors as necessary for hemodynamic support Titrate to keep mean arterial pressure greater than 65 mmHg. Monitor renal function Monitor electrolytes. Supplement as necessary. Monitor ins and outs. GI prophylaxis. DVT prophylaxis - therapeutic Lovenox. Prognosis: Poor given patient's multiple co-morbidities. Condition: Critical Rest of plan per hospitalist and other consultants. A total of 35 minutes of critical care time was spent reviewing the patient record, examining the patient, making a diagnostic and therapeutic plan, discussing this plan with the medical personnel, following up on diagnostic studies and following the patient for clinical stability excluding any and all procedures. At least 50% of this time was spent in direct, [id number] contact. Thank you, Dr. Chin, for allowing me to participate in this patient's care. Further recommendations will depend on the patient's clinical course. Please do not hesitate to contact me if you have any questions or concerns. This medical document was created using an electronic medical record system with eventblimp computerized dictation system. Although these documentations are being carefully reviewed, there may still be some phonetic and typographical changes. The errors are purely typographical, due to imperfection on the software program, and do not reflect any compromise in the patient's medical care. Dietary Evaluation Review Comments: 1) Initiate MVI @ 1 tb qd 2) Consider Vitamin C @ 500 mg bid and zinc sulfate @ 220 mg qd for 7-10 days 3) If patient remains NPO > 7 days, consider EN/TPN to meet at least 75% of estimated daily needs 4) If GI is preferred, consider Vital AF 1.2 @ 45 mL/hr goal rate as tolerated. TF regimen will provide 1576 kcals (including Propofol), 81g Pro, and 903 mL free H2O per 24 hrs. Goal rate will meet ~93% estimated energy needs and ~74% estimated protein neeeds 5) Advance to regular diet when medically feasible, pending [employer] approval 6) Follow-up with community mental health social worker regarding suicidal ideation 7) Follow-up with cardiology and pulmonology 8) Continue to monitor I&O, labs, and skin integrity Expected Outcomes/Goals: 1) patient to receive nutrition support within 7 days of NPO status 2) labs to improve 3) diet to advance 4) f/u in 2-3 days Plan discussed with: Other (THERESA Ruiz) Critical Care Time(min): 35 RUBIN VOGEL MD Oct 12, 2024 20:13
--- NOTE | 2024-10-12 22:48 | DVHPN2 ---
Progress Note - Dictate Date Seen: Oct 12, 2024 Has the PT tested + for MRSA If YES, has PT been informed?: No Medical Necessity Reason Pt with a Central, PICC or Fol: Yes The following are medically ne: Central Line Subjective Patient was seen and evaluated in follow up in the ICU. No overnight events. Patient is intubated and sedated on ventilator. FiO2 remains at 30%. CO2 19, CA 8, AST 310, ALT 456. vital signs Vital Sign Date Time Temp Pulse Resp B/P (MAP) Pulse Ox O2 Delivery O2 Flow Rate FiO2 10/12/24 11:53 16 98 Mechanical Ventilator+ 30 30 10/12/24 11:53 78 10/12/24 11:49 106/60 (75) 10/12/24 09:04 98.3 98.3 Total Intake and Output 10/11/24 10/11/24 10/12/24 15:00 23:00 07:00 Intake Total 1072.316 ml 999.816 ml 1007.506 ml Output Total 1026 ml 1000 ml Balance 1072.316 ml -26.184 ml 7.506 ml medications Current Medications Medications Dose Ordered Sig/Jose Route Start Time Stop Time Status Last Admin Dose Admin Norepinephrine Bitartrate 250 ml @ 3.75 mls/hr Q24H IV 10/09/24 09:45 10/09/24 17:11 18.75 MLS/HR Sodium Chloride 1,000 ml @ 100 mls/hr Q10H IV 10/09/24 12:45 10/12/24 09:38 100 MLS/HR Acetaminophen 650 mg Q6HP PRN PO 10/09/24 12:45 Nitroglycerin 0.4 mg Q5MINP PRN SL 10/09/24 12:45 Morphine Sulfate 2 mg Q30M PRN IV 10/09/24 13:30 Diagnostic Test (Pha) 1 strip Q6HR 10/09/24 18:00 10/12/24 10:49 1 STRIP Insulin Human Regular Q6HR SC 10/09/24 18:00 Dextrose 50 ml UD PRN IV 10/09/24 12:45 Tamsulosin HCl 0.4 mg QPM PO 10/09/24 18:00 10/11/24 16:43 0.4 MG Vancomycin HCl 0 ml @ 0 mls/hr UD IV 10/09/24 13:15 Propofol 100 ml @ 1.767 mls/ hr Q24H IV 10/09/24 14:00 10/12/24 13:01 14.136 MLS/HR Fentanyl Citrate 250 ml @ 2.5 mls/hr Q24H IV 10/09/24 16:00 10/12/24 02:37 7.5 MLS/HR Enoxaparin Sodium 70 mg Q12HR SC 10/09/24 22:00 10/12/24 08:05 70 MG Vancomycin HCl 250 ml @ 200 mls/hr Q24H IV 10/10/24 15:00 10/11/24 14:00 200 MLS/HR Cefepime HCl 50 ml @ 12.5 mls/hr Q8HR IV 10/11/24 14:00 10/12/24 13:01 12.5 MLS/HR Pantoprazole Sodium 40 mg DAILY IV 10/12/24 10:00 10/12/24 07:07 40 MG Enteral Nutritional Formula 1,000 ml 45ML/HR GT 10/11/24 13:45 10/11/24 21:12 1,000 ML objective GENERAL: Ill appearing, intubated on ventilator. EYES: PERRL, EOMI. Anicteric. HENT: Moist mucous membranes. LUNGS: Decreased breath sounds. CARDIOVASCULAR: Regular rate and rhythm. ABDOMEN: Soft, nontender and nondistended. EXTREMITIES: No edema. SKIN: Warm, dry. laboratory and microbiology Laboratory Tests 10/12/24 03:15 Test 10/12/24 03:15 Range/Units Serum Glucose 82 74-106 mg/dL Problem List Benzodiazepine overdose. Atrial fibrillation with rapid ventricular response, stage unknown, now NSR. NSTEMI, likely type II secondary to above. Rule out structural heart disease. Hypertension. Dyslipidemia. History of left [id number] amputation. Assessment/Plan Continued all current supportive medical care. IV antibiotics as ordered. DVT and GI prophylactics. Morphine for pain management. Vasopressors for hemodynamic support. Additional plan as per the hospital course. Critical care time of 45 minutes provided to include time spent evaluation of patient at bedside, when appropriate patient/family education for diagnosis, treatment plan, review of pertinent medical information and discussion of care with specialty providers and PCP. Mechanical ventilator parameters, treatment and adjustments have personally been reviewed by me and treatment plan by radio despatcher has also been reviewed. Dietary Evaluation Review Comments: 1) Initiate MVI @ 1 tb qd 2) Consider Vitamin C @ 500 mg bid and zinc sulfate @ 220 mg qd for 7-10 days 3) If patient remains NPO > 7 days, consider EN/TPN to meet at least 75% of estimated daily needs 4) If GI is preferred, consider Vital AF 1.2 @ 45 mL/hr goal rate as tolerated. TF regimen will provide 1576 kcals (including Propofol), 81g Pro, and 903 mL free H2O per 24 hrs. Goal rate will meet ~93% estimated energy needs and ~74% estimated protein neeeds 5) Advance to regular diet when medically feasible, pending [employer] approval 6) Follow-up with licensed clinical social worker regarding suicidal ideation 7) Follow-up with cardiology and pulmonology 8) Continue to monitor I&O, labs, and skin integrity Expected Outcomes/Goals: 1) patient to receive nutrition support within 7 days of NPO status 2) labs to improve 3) diet to advance 4) f/u in 2-3 days Plan discussed with: RAI Motley MD Oct 12, 2024 13:07
[2024-10-13] VITALS (114 sets, daily range): BP systolic 98–149; BP diastolic 55–101; PULSE 54–104; RESP 0–17; TEMP 96.6–99.3; O2SAT 92–100
[2024-10-13 01:08] LABS: Urine Bacteria FEW /hpf (None Seen); Urine Blood Negative /uL (Negative); Urine Clarity Clear (Clear); Urine Color Light-Yellow (Yellow); Urine Hyaline Cast FEW /lpf (0 - 2); Urine Mucus FEW (None Seen); Urine Protein, UAD TRACE (Negative); Urine Squamous Epithelial Cell FEW /hpf (<5); Urine Urobilinogen Normal (Negative); Urine WBC 1 /HPF (0-3)
[2024-10-13 03:55] LABS: Basophils # (auto) 0 10 ^3/uL (0-0.2); Basophils % (auto) 0.5 % (0.0-2.0); Hematocrit 36.8 % (41.0-53.0); Mean Corpuscular Hemoglobin 35.1 pg (28.0-32.0); Neutrophils # (auto) 4.1 10 ^3/uL (1.6-8.6); Nucleated Red Blood Cells % 0.2 %; White Blood Cell 6.1 10^3/uL (4.4-10.8)
[2024-10-13 04:01] LABS: Eosinophils # (auto) 0.2 10 ^3/uL (0-0.8); Eosinophils % (auto) 3.9 % (0.0-7.0); Hemoglobin 12.8 g/dL (13.5-17.5); Lymphocytes % (auto) 16.8 % (10.0-50.0); Mean Corpuscular Hgb Conc. 34.8 g/dL (32.0-36.0); Mean Corpuscular Volume 100.9 fL (80.0-100.0); Monocytes # (auto) 0.7 10 ^3/uL (0-1.3); Neutrophils % (auto) 66.8 % (37.0-80.0); Platelet Count (auto) 165 10^3/uL (140-450); Red Blood Cells 3.65 10^6/uL (4.5-5.90); Red Cell Distribution Width 15.3 % (11.8-14.3)
[2024-10-13 04:08] LABS: INR 1.08 (0.9-1.15); Partial Thromboplastin Time 39.4 SEC (24.5-34.5); Prothrombin Time 11.4 sec (9.3-11.8)
[2024-10-13 04:13] LABS: Alkaline Phosphatase 67 U/L (46-116); Anion Gap 9 (5-15); BUN/Creatinine Ratio 8.6 (10.0-20.0); Carbon Dioxide 21 mmol/L (20-31); Glucose 92 mg/dL (74-106); Magnesium 1.8 mg/dL (1.6-2.6)
[2024-10-13 04:22] LABS: Alanine Aminotransferase 243 U/L (7-40); Albumin 2.8 g/dL (3.2-4.8); Bilirubin, Total 0.2 mg/dL (0.2-1.0); Blood Urea Nitrogen 6 mg/dL (9-23); Calcium 7.3 mg/dL (8.7-10.4); Chloride 115 mmol/L (98-107); Potassium 3.5 mmol/L (3.5-5.1); Sodium 145 mmol/L (136-145); Total Protein 4.9 g/dL (5.7-8.2)
[2024-10-13 04:45] LABS: Aspartate Aminotransferase 117 U/L (13-40)
--- NOTE | 2024-10-13 05:07 | DVH ---
CHEST RADIOGRAPH Indication: RESP FAILURE Technique: Single frontal view of the chest was obtained Comparison: XY CHEST XRAY 1 VIEW on DOS: 10/11/24 FINDINGS: Lines and Tubes: The endotracheal tube terminates 3.2 cm above the cherri. NG Lungs: Bilateral interstitial prominence. Bibasilar opacities. Pleura: No effusion. No pneumothorax. Cardiomediastinal contours: Unremarkable Bones: No acute osseous abnormality. IMPRESSION: 1. Pulmonary vascular congestion. Bibasilar opacities which may reflect superimposed atelectasis or p neumonia.
[2024-10-13] MEDS: VANCOMYCIN 1.25GM/250ML 250 ML IV SCH (06:39)
[2024-10-13 08:18] LABS: Base Excess -5.9 mmol/L (-2.0-3.0)
--- NOTE | 2024-10-13 09:13 | ECG ---
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
[2024-10-13] MEDS: IODIXANOL 320MG/ML 100ML BTL IV ONE (10:04)
[2024-10-13] MEDS: ANGIOMAX 250 MG VIAL IV ONE (10:12)
[2024-10-13] MEDS: SODIUM CHL 0.9% 0 ML ONE (10:13)
[2024-10-13] MEDS: LIDOCAINE 2%HCL (LOCAL ANESTH.) INJ 20ML MDV ONE (10:13)
[2024-10-13] MEDS: VERAPAMIL 2.5MG/ML INJ 2ML VIAL IV ONE (10:13)
--- NOTE | 2024-10-13 11:37 | DVHPN2 ---
Progress Note Date Seen: Oct 13, 2024 Has the PT tested + for MRSA If YES, has PT been informed?: No Medical Necessity Reason Pt with a Central, PICC or Fol: Yes The following are medically ne: Central Line, Valles Catheter Reason for valles catheter: Strict I&O Subjective Patient reports: Feels better Objective vital signs Vital Sign Date Time Temp Pulse Resp B/P (MAP) Pulse Ox O2 Delivery O2 Flow Rate FiO2 10/13/24 10:07 147/74 10/13/24 09:40 58 16 100 30 10/13/24 08:00 Mechanical Ventilator+ 10/13/24 04:05 98.4 98.4 Total Intake and Output 10/12/24 10/12/24 10/13/24 15:00 23:00 07:00 Intake Total 1243.088 ml 1219.088 ml 1036.321 ml Output Total 950 ml 750 ml Balance 1243.088 ml 269.088 ml 286.321 ml medications Current Medications Medications Dose Ordered Sig/Jose Route Start Time Stop Time Status Last Admin Dose Admin Norepinephrine Bitartrate 250 ml @ 3.75 mls/hr Q24H IV 10/09/24 09:45 10/09/24 17:11 18.75 MLS/HR Sodium Chloride 1,000 ml @ 100 mls/hr Q10H IV 10/09/24 12:45 10/13/24 06:22 100 MLS/HR Acetaminophen 650 mg Q6HP PRN PO 10/09/24 12:45 Nitroglycerin 0.4 mg Q5MINP PRN SL 10/09/24 12:45 Morphine Sulfate 2 mg Q30M PRN IV 10/09/24 13:30 Diagnostic Test (Pha) 1 strip Q6HR 10/09/24 18:00 10/13/24 06:00 1 STRIP Insulin Human Regular Q6HR SC 10/09/24 18:00 Dextrose 50 ml UD PRN IV 10/09/24 12:45 Tamsulosin HCl 0.4 mg QPM PO 10/09/24 18:00 10/12/24 17:18 0.4 MG Vancomycin HCl 0 ml @ 0 mls/hr UD IV 10/09/24 13:15 Propofol 100 ml @ 1.767 mls/ hr Q24H IV 10/09/24 14:00 10/13/24 10:07 14.136 MLS/HR Fentanyl Citrate 250 ml @ 2.5 mls/hr Q24H IV 10/09/24 16:00 10/13/24 10:08 15 MLS/HR Enoxaparin Sodium 70 mg Q12HR SC 10/09/24 22:00 Hold 10/12/24 08:05 70 MG Cefepime HCl 50 ml @ 12.5 mls/hr Q8HR IV 10/11/24 14:00 10/13/24 06:22 12.5 MLS/HR Pantoprazole Sodium 40 mg DAILY IV 10/12/24 10:00 10/13/24 10:08 40 MG Enteral Nutritional Formula 1,000 ml 45ML/HR GT 10/11/24 13:45 10/11/24 21:12 1,000 ML Vancomycin HCl 250 ml @ 200 mls/hr Q16H IV 10/13/24 07:00 10/13/24 06:39 200 MLS/HR Examination: GENERAL:Abnormal, HEENT:Abnormal, LUNGS:Abnormal, CVS:Abnormal, ABDOMEN:Abnormal laboratory and microbiology Laboratory Tests 10/13/24 03:15 Test 10/13/24 03:15 Range/Units Serum Glucose 92 74-106 mg/dL Microbiology Date/Time Source Procedure Growth Status 10/09/24 17:52 Nose MRSA Screen - Final Complete 10/09/24 09:17 Blood Blood Culture - Preliminary NO GROWTH AFTER 72 HOURS OF INCUBATION. Resulted 10/09/24 09:12 Sputum Gram Stain - Final Resulted 10/09/24 09:12 Sputum Respiratory Culture - Preliminary Resulted Problem List/Assessment/Plan Problem List/Assessment/Plan Benzodiazepine overdose Atrial fibrillation with rapid ventricular response, stage unknown, now NSR NSTEMI, likely type II secondary to above Rule out structural heart disease Hypertension Dyslipidemia s/p cath moderate cad non critical dc lovenox can do prophy dosing fu pulm recs Plan discussed with: Other (rn) My Orders My Orders Orders - MIA EVANS MD Procedure Category Date Status Time Cl Left Heart Cath CL 10/13/24 Taken 08:19 Dietary Evaluation Review Comments: 1) Initiate MVI @ 1 tb qd 2) Consider Vitamin C @ 500 mg bid and zinc sulfate @ 220 mg qd for 7-10 days 3) If patient remains NPO > 7 days, consider EN/TPN to meet at least 75% of estimated daily needs 4) If GI is preferred, consider Vital AF 1.2 @ 45 mL/hr goal rate as tolerated. TF regimen will provide 1576 kcals (including Propofol), 81g Pro, and 903 mL free H2O per 24 hrs. Goal rate will meet ~93% estimated energy needs and ~74% estimated protein neeeds 5) Advance to regular diet when medically feasible, pending [employer] approval 6) Follow-up with social contact worker regarding suicidal ideation 7) Follow-up with cardiology and pulmonology 8) Continue to monitor I&O, labs, and skin integrity Expected Outcomes/Goals: 1) patient to receive nutrition support within 7 days of NPO status 2) labs to improve 3) diet to advance 4) f/u in 2-3 days Date of Service: Oct 13, 2024 Billing Provider: MIA EVANS MD Common Visit Codes: NOT BILLABLE MIA EVANS MD Oct 13, 2024 11:37
--- NOTE | 2024-10-13 11:40 | DVHOP2 ---
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 sedation 15-30 mins, US guided vascular access saved to pacs system. PREOPERATIVE DIAGNOSES: CAD POSTOP DIAGNOSIS: CAD , nstemi DESCRIPTION OF PROCEDURE: The patient or appropriate family signed informed consent understanding the risks, benefits and alternatives of the procedure, they wished to proceed. The patient was brought to the cardiac prosthetics lab technician in n.p.o. state. The patient was prepped in a sterile fashion. Sedation was used per cardiac cath protocol. I administered 8 mL of 2% lidocaine to the right groin . With an antegrade front wall puncture using US guidance and c onfirming DRYWALL BOARDHANGER patency but heavy calcium , I cannulated the right common femoral artery and placed a 6-[place] Glidesheath . angiogram performed to show appropriate arteriotomy site. Next, . Next, a - [id number], JL4 and pigtail. were used for coronary angiogram and LVEDP measurement and pressure pullback. At the completion of procedure, all guides and wires were removed, and there were no immediate complications. angioseal used for closure. FINDINGS: RCA: Moderate vessel off the right sinus of Valsalva, there is no severe flow limiting stenosis. mild plaquing in mid to distal portion LEFT MAIN: Moderate size left main, it bifurcates into LAD and circumflex. CIRCUMFLEX: Moderate caliber vessel coming off the left main with no flow limiting stenosis. very small diminuitive vessel. LAD: LAD is a moderate caliber vessel coming of the left main. it gives off a moderate D1 that as long tubular 50% stenosis. mid to distal LAD has a long stringy 40% lesion into apical LAD. LVEDP of 12 mmhg CONCLUSIONS: 1. moderate CAD 2. normal lvedp PLAN: Aggressive risk factor modification and medical management for the patient. MIA EVANS MD Oct 13, 2024 11:40
--- NOTE | 2024-10-13 11:52 | DVHSR ---
APPROVED REPORT EXAM: LIMITED Two-dimensional and M-mode echocardiogram with Doppler and color Doppler. Blood Pressure: 97/57 mmHg INDICATION SOB RISK FACTORS Height: 5' 9", Weight: 129 DIMENSIONS LVDd5.1 (3.8-5.7cm)LA (2D)4.3 (1.9-4.0cm)Aortic Root (2.0-3.7cm) LVDs3.9 (2.5-4.0cm)LA (MM) (1.9-4.0cm)Aortic Cusp Exc (1.5-2.0cm) EF (%) 44.0 (55-70%)Rt. Atrium4.0 (1.9-4.0cm)Asc. Aorta cm IVSd1.3 (0.7-1.1cm)RV (D) (1.8-2.4cm) PWd1.5 (0.7-1.1cm) Mitral Valve MitralMitral Stenosis E wave0.90m/sMV Mean GR.mmHg E/A ratio0.02D MVAcm2 Aortic Valve Aortic ValveAortic Stenosis V10.60m/Bulmaro Mean GR.4mmHg V21.30m/Bulmaro Peak GR.7mmHg Tricuspid Valve TR Velocity1.90m/s [id number] Other Information Quality : Technically LimitedRhythm : Atrial Fibrillation Conclusion lvef 40% RV enlarged biatrial enlargement no sever valve abnormalities noted limited study
--- NOTE | 2024-10-13 17:02 | DVHPNRES ---
Progress Note Date Seen: Oct 13, 2024 Resident Creating Document: RENETTA SCHWARTZ RESIDENT Has the PT tested + for MRSA If YES, has PT been informed?: No Medical Necessity Reason Pt with a Central, PICC or Fol: Yes The following are medically ne: Central Line, Valles Catheter Reason for valles catheter: Strict I&O Subjective Review of Systems Patient and examined today. The was taken earlier in the morning for cardia cath given the persistent troponin elevation. Report showed moderate CAD,normal lvedp. patient is currently precedex Objective vital signs Vital Sign Date Time Temp Pulse Resp B/P (MAP) Pulse Ox O2 Delivery O2 Flow Rate FiO2 10/13/24 16:20 94 16 131/78 (95) 98 10/13/24 16:00 Mechanical Ventilator+ 30 30 10/13/24 13:35 97.7 97.7 Total Intake and Output 10/12/24 10/12/24 10/13/24 15:00 23:00 07:00 Intake Total 1243.088 ml 1219.088 ml 1365.457 ml Output Total 950 ml 750 ml Balance 1243.088 ml 269.088 ml 615.457 ml medications Current Medications Medications Dose Ordered Sig/Jose Route Start Time Stop Time Status Last Admin Dose Admin Norepinephrine Bitartrate 250 ml @ 3.75 mls/hr Q24H IV 10/09/24 09:45 10/09/24 17:11 18.75 MLS/HR Acetaminophen 650 mg Q6HP PRN PO 10/09/24 12:45 Nitroglycerin 0.4 mg Q5MINP PRN SL 10/09/24 12:45 Morphine Sulfate 2 mg Q30M PRN IV 10/09/24 13:30 Tamsulosin HCl 0.4 mg QPM PO 10/09/24 18:00 10/12/24 17:18 0.4 MG Vancomycin HCl 0 ml @ 0 mls/hr UD IV 10/09/24 13:15 Propofol 100 ml @ 1.767 mls/ hr Q24H IV 10/09/24 14:00 10/13/24 16:19 14.136 MLS/HR Fentanyl Citrate 250 ml @ 2.5 mls/hr Q24H IV 10/09/24 16:00 10/13/24 10:08 15 MLS/HR Cefepime HCl 50 ml @ 12.5 mls/hr Q8HR IV 10/11/24 14:00 10/13/24 14:43 12.5 MLS/HR Pantoprazole Sodium 40 mg DAILY IV 10/12/24 10:00 10/13/24 10:08 40 MG Enteral Nutritional Formula 1,000 ml 45ML/HR GT 10/11/24 13:45 10/11/24 21:12 1,000 ML Vancomycin HCl 250 ml @ 200 mls/hr Q16H IV 10/13/24 07:00 10/13/24 06:39 200 MLS/HR Examination General Appearance: Sedated s/p C HEENT: Atraumatic Respiratory: Intubated and on mechanical ventilation Cardiovascular: Sinus rhythm. 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 Resulted 10/09/24 09:12 Sputum Gram Stain - Final Resulted 10/09/24 09:12 Sputum Respiratory Culture - Preliminary Resulted Problem List/Assessment/Plan Problem List/Assessment/Plan Assessment and plan: NEURO: Acute metabolic encephalopathy due to benzodiazepine overdose - Flumazenil - s/p intubation - Currently on propofol and fentanyl lowest does. - Possible percedex tomorrow in preparation for Cpap trial CARDIOVASCULAR: Atrial fibrillation with rapid ventricular response, stage unknown, now NSR NSTEMI, likely type II secondary to above Atrial fibrillation with rapid ventricular response, stage unknown Hypotension - Amiodarone drip - Transthoracic echocardiogram to evaluate cardiac function - Vasopressors for hemodynamic support - Troponin uptrending 983, rule out SD - Reconsult Cardiology PULMONARY: Acute hypoxic respiratory failure Possible aspiration pneumonia Pneumonia gram-/gram+ - intubated - CxR showed Bibasilar atelectasis or pneumonia - Cefepime 1gm q12 hr and vancomycin GASTROINTESTINAL: Acute liver failure/ Drug Induce liver injury vs shock liver AST: 182 ALT: 820 Alkaline phosphate: 67 T. 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 Cpap trial for 40 minutes, setting 11/08. for potential extubation Patient's status discussed with Fe Critical care time spent more than 45 minutes. Case discussed with Dr. Herron Plan discussed with: Other (RN) Plan discussed with: Patient Dietary Evaluation Review Comments: 1) Initiate MVI @ 1 tb qd 2) Consider Vitamin C @ 500 mg bid and zinc sulfate @ 220 mg qd for 7-10 days 3) If patient remains NPO > 7 days, consider EN/TPN to meet at least 75% of estimated daily needs 4) If GI is preferred, consider Vital AF 1.2 @ 45 mL/hr goal rate as tolerated. TF regimen will provide 1576 kcals (including Propofol), 81g Pro, and 903 mL free H2O per 24 hrs. Goal rate will meet ~93% estimated energy needs and ~74% estimated protein neeeds 5) Advance to regular diet when medically feasible, pending [facility] approval 6) Follow-up with social work manager regarding suicidal ideation 7) Follow-up with cardiology and pulmonology 8) Continue to monitor I&O, labs, and skin integrity Expected Outcomes/Goals: 1) patient to receive nutrition support within 7 days of NPO status 2) labs to improve 3) diet to advance 4) f/u in 2-3 days Date of Service: Oct 13, 2024 Billing Provider: MARLENY HERRON MD Common Visit Codes: NOT BILLABLE RENETTA SCHWARTZ RESIDENT Oct 13, 2024 17:02 MARLENY HERRON MD Oct 14, 2024 11:55
[2024-10-14] VITALS (109 sets, daily range): BP systolic 77–190; BP diastolic 45–157; PULSE 64–126; RESP 10–24; TEMP 98.6–99.5; O2SAT 92–100
--- NOTE | 2024-10-14 00:10 | DVHPN2 ---
Progress Note - Dictate Date Seen: Oct 13, 2024 Has the PT tested + for MRSA If YES, has PT been informed?: No Medical Necessity Reason Pt with a Central, PICC or Fol: Yes The following are medically ne: Central Line, Valles Catheter Reason for valles catheter: Strict I&O Subjective Patient was seen and evaluated in follow up in the ICU. Patient is intubated and sedated on ventilator. 30% FiO2. Patient underwent Coronary angiogram, left heart catheterization with Dr. Polo which showed moderate CAD, normal lvedp. AST 117, ALT 243. vital signs Vital Sign Date Time Temp Pulse Resp B/P (MAP) Pulse Ox O2 Delivery O2 Flow Rate FiO2 10/13/24 22:09 92 16 105/61 (76) 98 30 10/13/24 22:05 Mechanical Ventilator+ 10/13/24 20:06 99.3 99.3 Total Intake and Output 10/13/24 10/13/24 10/14/24 15:00 23:00 07:00 Intake Total 818.088 ml 330.406 ml Output Total 1100 ml Balance 818.088 ml -769.594 ml medications Current Medications Medications Dose Ordered Sig/Jose Route Start Time Stop Time Status Last Admin Dose Admin Norepinephrine Bitartrate 250 ml @ 3.75 mls/hr Q24H IV 10/09/24 09:45 10/09/24 17:11 18.75 MLS/HR Acetaminophen 650 mg Q6HP PRN PO 10/09/24 12:45 Nitroglycerin 0.4 mg Q5MINP PRN SL 10/09/24 12:45 Morphine Sulfate 2 mg Q30M PRN IV 10/09/24 13:30 Tamsulosin HCl 0.4 mg QPM PO 10/09/24 18:00 10/13/24 17:41 0.4 MG Vancomycin HCl 0 ml @ 0 mls/hr UD IV 10/09/24 13:15 Propofol 100 ml @ 1.767 mls/ hr Q24H IV 10/09/24 14:00 10/13/24 16:19 14.136 MLS/HR Fentanyl Citrate 250 ml @ 2.5 mls/hr Q24H IV 10/09/24 16:00 10/13/24 10:08 15 MLS/HR Cefepime HCl 50 ml @ 12.5 mls/hr Q8HR IV 10/11/24 14:00 10/13/24 22:01 12.5 MLS/HR Pantoprazole Sodium 40 mg DAILY IV 10/12/24 10:00 10/13/24 10:08 40 MG Enteral Nutritional Formula 1,000 ml 45ML/HR GT 10/11/24 13:45 10/11/24 21:12 1,000 ML Vancomycin HCl 250 ml @ 200 mls/hr Q16H IV 10/13/24 07:00 10/13/24 22:59 200 MLS/HR objective GENERAL: Ill appearing, intubated on ventilator. EYES: PERRL, EOMI. Anicteric. HENT: Moist mucous membranes. LUNGS: Decreased breath sounds. CARDIOVASCULAR: Regular rate and rhythm. ABDOMEN: Soft, nontender and nondistended. EXTREMITIES: No edema. SKIN: Warm, dry. laboratory and microbiology Laboratory Tests 10/13/24 03:15 Test 10/13/24 03:15 Range/Units Serum Glucose 92 74-106 mg/dL Problem List Benzodiazepine overdose. Atrial fibrillation with rapid ventricular response, stage unknown, now NSR. NSTEMI, likely type II secondary to above. Rule out structural heart disease. Hypertension. Dyslipidemia. History of left [id number] amputation. Assessment/Plan Continued all current supportive medical care. IV antibiotics as ordered. DVT and GI prophylactics. Morphine for pain management. Vasopressors for hemodynamic support. Additional plan as per the hospital course. Critical care time of 45 minutes provided to include time spent evaluation of patient at bedside, when appropriate patient/family education for diagnosis, treatment plan, review of pertinent medical information and discussion of care with specialty providers and PCP. Mechanical ventilator parameters, treatment and adjustments have personally been reviewed by me and treatment plan by building dismantler has also been reviewed. Dietary Evaluation Review Comments: 1) Initiate MVI @ 1 tb qd 2) Consider Vitamin C @ 500 mg bid and zinc sulfate @ 220 mg qd for 7-10 days 3) If patient remains NPO > 7 days, consider EN/TPN to meet at least 75% of estimated daily needs 4) If GI is preferred, consider Vital AF 1.2 @ 45 mL/hr goal rate as tolerated. TF regimen will provide 1576 kcals (including Propofol), 81g Pro, and 903 mL free H2O per 24 hrs. Goal rate will meet ~93% estimated energy needs and ~74% estimated protein neeeds 5) Advance to regular diet when medically feasible, pending HEALTH PHYSICIST approval 6) Follow-up with social group worker regarding suicidal ideation 7) Follow-up with cardiology and pulmonology 8) Continue to monitor I&O, labs, and skin integrity Expected Outcomes/Goals: 1) patient to receive nutrition support within 7 days of NPO status 2) labs to improve 3) diet to advance 4) f/u in 2-3 days Plan discussed with: RAI Motley MD Oct 14, 2024 00:10
[2024-10-14 04:15] LABS: Basophils # (auto) 0 10 ^3/uL (0-0.2); Basophils % (auto) 0.3 % (0.0-2.0); Eosinophils # (auto) 0.2 10 ^3/uL (0-0.8); Eosinophils % (auto) 2.5 % (0.0-7.0); Hematocrit 39.2 % (41.0-53.0); Hemoglobin 13.5 g/dL (13.5-17.5); Lymphocytes # (auto) 1.1 10 ^3/uL (0.4-5.4); Lymphocytes % (auto) 12.6 % (10.0-50.0); Mean Corpuscular Hemoglobin 34.7 pg (28.0-32.0); Mean Corpuscular Hgb Conc. 34.5 g/dL (32.0-36.0); Mean Corpuscular Volume 100.6 fL (80.0-100.0); Monocytes # (auto) 1.1 10 ^3/uL (0-1.3); Monocytes % (auto) 12.8 % (0.0-12.0); Neutrophils # (auto) 6.2 10 ^3/uL (1.6-8.6); Neutrophils % (auto) 71.8 % (37.0-80.0); Platelet Count (auto) 188 10^3/uL (140-450); Red Blood Cells 3.89 10^6/uL (4.5-5.90); Red Cell Distribution Width 15.5 % (11.8-14.3); White Blood Cell 8.6 10^3/uL (4.4-10.8)
[2024-10-14] MEDS: DEXMEDETOMIDINE HCL IN D5W 100 ML IV SCH (04:19)
[2024-10-14 05:11] LABS: Albumin 3.5 g/dL (3.2-4.8); Alkaline Phosphatase 89 U/L (46-116); Anion Gap 12 (5-15); Glucose 95 mg/dL (74-106); Potassium 3.7 mmol/L (3.5-5.1); Sodium 142 mmol/L (136-145); Total Protein 6.1 g/dL (5.7-8.2)
[2024-10-14 05:13] LABS: Alanine Aminotransferase 205 U/L (7-40); Bilirubin, Total 0.3 mg/dL (0.2-1.0); Blood Urea Nitrogen 6 mg/dL (9-23); Calcium 8.4 mg/dL (8.7-10.4); Carbon Dioxide 19 mmol/L (20-31); Chloride 111 mmol/L (98-107)
[2024-10-14 05:37] LABS: Aspartate Aminotransferase 73 U/L (13-40)
--- NOTE | 2024-10-14 08:18 | DVH ---
EXAM: XY CHEST PORTABLE Indication: RESP FAILURE Technique: Single frontal view of the chest was obtained Comparison: XY CHEST PORTABLE on DOS: 10/13/24, XY CHEST XRAY 1 VIEW on DOS: 10/11/24, XY CHEST PORTABLE on DOS: 10/10/24, XY CHEST XRAY 1 VIEW on DOS: 10/09/24, XY CHEST PORTABLE on DOS: 10/09/24, XY CHEST KASSIE BLE on DOS: 10/13/24 FINDINGS: Lines and Tubes: The endotracheal tube terminates 3.2 cm above the cherri. NG tube is appropriate. Lungs: Bilateral interstitial prominence. Bibasilar opacities. Pleura: No effusion. No pneumothorax. Cardiomediastinal contours: Unremarkable Bones: No acute osseous abnormality. IMPRESSION: Worsening pulmonary edema compared to prior exam.
[2024-10-14 08:25] LABS: Base Excess -8.2 mmol/L (-2.0-3.0)
[2024-10-14] MEDS ORDERED: LORazepam 2MG/ML-1ML VIAL IM ONE (09:15)
[2024-10-14] MEDS: FUROSEMIDE 40 MG/4 ML VIAL IV ONE (10:06)
[2024-10-14] MEDS: ENOXAPARIN SOD 40 MG/0.4 ML SYRINGE SC SCH (10:07)
--- NOTE | 2024-10-14 13:12 | DVH ---
EXAM: XY CHEST PORTABLE Indication: central line placement Technique: Single frontal view of the chest was obtained Comparison: XY CHEST PORTABLE on DOS: 10/14/24, XY CHEST PORTABLE on DOS: 10/13/24, XY CHEST XRAY 1 VIEW on DOS: 10/11/24, XY CHEST PORTABLE on DOS: 10/10/24, XY CHEST XRAY 1 VIEW on DOS: 10/09/24 FINDINGS: Lines and Tubes: Endotracheal tube, enteric tube, left internal jugular central venous catheter tips project in appropriate position. Lungs: Bibasilar opacities. Pleura: No effusion. No pneumothorax. Cardiomediastinal contours: Unremarkable Bones: No acute osseous abnormality. IMPRESSION: Bibasilar opacities. Lines and tubes in appropriate position.
[2024-10-14] MEDS: LORazepam 2MG/ML-1ML VIAL IV ONE (14:10)
--- NOTE | 2024-10-14 14:13 | DVHNC2 ---
Procedure - Procedure- Left IJ central line placement ultrasound guided Indication- Intravenous access Procedure in detail Consent was obtained and timeout performed per protocol. The patient was placed in the supine position and the left IJ vein was localized using ultrasound SonoSite. ChloraPrep was used to clean the operative field, sterile drapes used to cover the area and local analgesia Lidocaine 1% 3 cc. Triple-lumen catheter was inserted over the wire with direct ultrasound guidance in the left IJ vein. The wire was removed, catheter flushed with normal saline and secured with 2 sutures. Sterile dressing applied. No complications. MARLENY HINDS MD Oct 14, 2024 14:13
[2024-10-14 15:27] LABS: Base Excess -5.3 mmol/L (-2.0-3.0)
--- NOTE | 2024-10-14 16:42 | DVHPNRES ---
Progress Note Date Seen: Oct 14, 2024 Resident Creating Document: RENETTA SCHWARTZ RESIDENT Has the PT tested + for MRSA If YES, has PT been informed?: No Medical Necessity Reason Pt with a Central, PICC or Fol: Yes The following are medically ne: Central Line, Valles Catheter Reason for valles catheter: Strict I&O Medical Necessity Reason Patient seen and examined this morning. It was still intubated as at this morning. ABG was acidotic and chest x-ray showed congested lungs. Patient received lasix 40mg one time. He was waking up. Also the central placed on 10/09/2024 had pulled out. So, Dr. Herron placed a new one. Pateint had cpap for about 40 minutes. He did well and was later extubated. He is currently on nubulizer. Objective vital signs Vital Sign Date Time Temp Pulse Resp B/P (MAP) Pulse Ox O2 Delivery O2 Flow Rate FiO2 10/14/24 15:44 96 Cool Aerosol 10 35 35 10/14/24 15:10 16 10/14/24 14:45 102 139/82 (101) 10/14/24 08:06 99.1 99.1 Total Intake and Output 10/13/24 10/13/24 10/14/24 15:00 23:00 07:00 Intake Total 818.088 ml 493.756 ml 368.988 ml Output Total 1100 ml 500 ml Balance 818.088 ml -606.244 ml -131.012 ml medications Current Medications Medications Dose Ordered Sig/Jose Route Start Time Stop Time Status Last Admin Dose Admin Norepinephrine Bitartrate 250 ml @ 3.75 mls/hr Q24H IV 10/09/24 09:45 10/09/24 17:11 18.75 MLS/HR Acetaminophen 650 mg Q6HP PRN PO 10/09/24 12:45 Nitroglycerin 0.4 mg Q5MINP PRN SL 10/09/24 12:45 Morphine Sulfate 2 mg Q30M PRN IV 10/09/24 13:30 Tamsulosin HCl 0.4 mg QPM PO 10/09/24 18:00 10/13/24 17:41 0.4 MG Propofol 100 ml @ 1.767 mls/ hr Q24H IV 10/09/24 14:00 10/14/24 01:32 17.67 MLS/HR Fentanyl Citrate 250 ml @ 2.5 mls/hr Q24H IV 10/09/24 16:00 10/13/24 10:08 15 MLS/HR Pantoprazole Sodium 40 mg DAILY IV 10/12/24 10:00 10/14/24 10:05 40 MG Enteral Nutritional Formula 1,000 ml 45ML/HR GT 10/11/24 13:45 10/11/24 21:12 1,000 ML Enoxaparin Sodium 40 mg DAILY SC 10/14/24 10:00 10/14/24 10:07 40 MG Examination General Appearance: Awake; s/p LHC 10/13/2024 HEENT: Atraumatic Respiratory: Intubated and on mechanical ventilation Cardiovascular: Sinus rhythm. 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 Complete 10/09/24 09:12 Sputum Gram Stain - Final Resulted 10/09/24 09:12 Sputum Respiratory Culture - Preliminary Resulted Problem List/Assessment/Plan Problem List/Assessment/Plan Assessment and plan: NEURO: Acute metabolic encephalopathy due to benzodiazepine overdose Awake and following command 10/14/2024 - Flumazenil - s/p intubation - Currently on propofol and fentanyl lowest does. - Possible percedex tomorrow in preparation for Cpap trial CARDIOVASCULAR: Atrial fibrillation with rapid ventricular response, stage unknown, now NSR NSTEMI, likely type II secondary to above Atrial fibrillation with rapid ventricular response, stage unknown Hypotension - Amiodarone drip - Transthoracic echocardiogram to evaluate cardiac function - Vasopressors for hemodynamic support - WA rule out - Reconsult Cardiology PULMONARY: Acute hypoxic respiratory failure Possible aspiration pneumonia Pneumonia gram-/gram+ - extubated - CxR showed Bibasilar atelectasis or pneumonia - Cefepime 1gm q12 hr and vancomycin GASTROINTESTINAL: Acute liver failure/ Drug Induce liver injury vs shock liver AST: 182 ALT: 820 Alkaline phosphate: 67 T. 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 Case discussed with Dr. Herron Plan discussed with: Other (RN) Plan discussed with: Patient, Spouse, Other (nurse at the bed side) My Orders My Orders Orders - RENETTA SCHWARTZ RESIDENT Procedure Category Date Status Time Chest Portable XY 10/14/24 Resulted 05:12 Enoxaparin Sodium PHA 10/14/24 In Process (Lovenox) 10:00 Complete Blood Count LAB 10/15/24 Verified 04:00 Magnesium LAB 10/15/24 Verified 04:00 Phosphorus LAB 10/15/24 Verified 04:00 Chest Xray 1 View XY 10/15/24 Logged 04:00 Hydralazine Injection PHA 10/14/24 Verified (Apresoline Inject 16:30 Dietary Evaluation Review Comments: 1) Initiate MVI @ 1 tb qd 2) Consider Vitamin C @ 500 mg bid and zinc sulfate @ 220 mg qd for 7-10 days 3) If patient remains NPO > 7 days, consider EN/TPN to meet at least 75% of estimated daily needs 4) If GI is preferred, consider Vital AF 1.2 @ 45 mL/hr goal rate as tolerated. TF regimen will provide 1576 kcals (including Propofol), 81g Pro, and 903 mL free H2O per 24 hrs. Goal rate will meet ~93% estimated energy needs and ~74% estimated protein neeeds 5) Advance to regular diet when medically feasible, pending SURVEYING TECHNICIAN approval 6) Follow-up with healthcare social worker regarding suicidal ideation 7) Follow-up with cardiology and pulmonology 8) Continue to monitor I&O, labs, and skin integrity Expected Outcomes/Goals: 1) patient to receive nutrition support within 7 days of NPO status 2) labs to improve 3) diet to advance 4) f/u in 2-3 days RENETTA SCHWARTZ RESIDENT Oct 14, 2024 16:42
[2024-10-14] MEDS: hydrALAZINE HCL 20 MG/ML VL IV PRN (18:27)
[2024-10-14] MEDS ORDERED: amLODIPine BESYLATE 5 MG TAB PO ONE (20:30)
[2024-10-14] MEDS ORDERED: METOPROLOL SUCCINATE XL 50 MG TAB PO ONE (20:30)
--- NOTE | 2024-10-14 21:41 | DVHPN2 ---
Progress Note - Dictate Date Seen: Oct 14, 2024 Has the PT tested + for MRSA If YES, has PT been informed?: No Medical Necessity Reason Pt with a Central, PICC or Fol: Yes The following are medically ne: Central Line, Valles Catheter Reason for valles catheter: Strict I&O Subjective Patient was seen and evaluated in follow up in the ICU. Patient was successfully extubated and placed on supplemental O2. Patient reports some SOB and throat discomfort. CO2 19, AST 73, ALT 205. Chest x-ray shows bibasilar opacities. vital signs Vital Sign Date Time Temp Pulse Resp B/P (MAP) Pulse Ox O2 Delivery O2 Flow Rate FiO2 10/14/24 20:00 16 96 Nasal Cannula* 2 28 10/14/24 20:00 121 10/14/24 18:27 177/98 10/14/24 18:21 98.6 98.6 Total Intake and Output 10/13/24 10/13/24 10/14/24 15:00 23:00 07:00 Intake Total 818.088 ml 493.756 ml 368.988 ml Output Total 1100 ml 500 ml Balance 818.088 ml -606.244 ml -131.012 ml medications Current Medications Medications Dose Ordered Sig/Jose Route Start Time Stop Time Status Last Admin Dose Admin Acetaminophen 650 mg Q6HP PRN PO 10/09/24 12:45 Nitroglycerin 0.4 mg Q5MINP PRN SL 10/09/24 12:45 Morphine Sulfate 2 mg Q30M PRN IV 10/09/24 13:30 Tamsulosin HCl 0.4 mg QPM PO 10/09/24 18:00 10/13/24 17:41 0.4 MG Propofol 100 ml @ 1.767 mls/ hr Q24H IV 10/09/24 14:00 10/14/24 01:32 17.67 MLS/HR Fentanyl Citrate 250 ml @ 2.5 mls/hr Q24H IV 10/09/24 16:00 10/14/24 10:00 20 MLS/HR Pantoprazole Sodium 40 mg DAILY IV 10/12/24 10:00 10/14/24 10:05 40 MG Enteral Nutritional Formula 1,000 ml 45ML/HR GT 10/11/24 13:45 10/11/24 21:12 1,000 ML Enoxaparin Sodium 40 mg DAILY SC 10/14/24 10:00 10/14/24 10:07 40 MG Hydralazine HCl 10 mg Q6HP PRN IV 10/14/24 16:30 10/14/24 18:27 10 MG Amlodipine Besylate 10 mg DAILY PO 10/15/24 10:00 Metoprolol Succinate 25 mg DAILY PO 10/15/24 10:00 objective GENERAL: Alert and oriented x 3. No acute distress. EYES: PERRL, EOMI. Anicteric. HENT: Moist mucous membranes. LUNGS: Decreased breath sounds. CARDIOVASCULAR: Regular rate and rhythm. ABDOMEN: Soft, nontender and nondistended. EXTREMITIES: No edema. SKIN: Warm, dry. laboratory and microbiology Laboratory Tests 10/14/24 03:10 Test 10/14/24 03:10 Range/Units Serum Glucose 95 74-106 mg/dL Problem List Benzodiazepine overdose. Atrial fibrillation with rapid ventricular response, stage unknown, now NSR. NSTEMI, likely type II secondary to above. Rule out structural heart disease. Hypertension. Dyslipidemia. History of left [id number] amputation. Assessment/Plan Continued all current supportive medical care. Amlodipine. DVT and GI prophylactics. IV Hydralazine for SBP >150. Metoprolol. Morphine for pain management. Additional plan as per the hospital course. Critical care time of 45 minutes provided to include time spent evaluation of patient at bedside, when appropriate patient/family education for diagnosis, treatment plan, review of pertinent medical information and discussion of care with specialty providers and PCP. Dietary Evaluation Review Comments: 1) Initiate MVI @ 1 tb qd 2) Consider Vitamin C @ 500 mg bid and zinc sulfate @ 220 mg qd for 7-10 days 3) If patient remains NPO > 7 days, consider EN/TPN to meet at least 75% of estimated daily needs 4) If GI is preferred, consider Vital AF 1.2 @ 45 mL/hr goal rate as tolerated. TF regimen will provide 1576 kcals (including Propofol), 81g Pro, and 903 mL free H2O per 24 hrs. Goal rate will meet ~93% estimated energy needs and ~74% estimated protein neeeds 5) Advance to regular diet when medically feasible, pending EMAIL MARKETER approval 6) Follow-up with social media specialist regarding suicidal ideation 7) Follow-up with cardiology and pulmonology 8) Continue to monitor I&O, labs, and skin integrity Expected Outcomes/Goals: 1) patient to receive nutrition support within 7 days of NPO status 2) labs to improve 3) diet to advance 4) f/u in 2-3 days Plan discussed with: Patient RAI CRUZ MD Oct 14, 2024 21:41
[2024-10-15] VITALS (41 sets, daily range): BP systolic 101–200; BP diastolic 71–102; PULSE 84–125; RESP 12–29; TEMP 98–98.9; O2SAT 91–99
[2024-10-15] MEDS: LABETALOL HCL 20 MG/4 ML VL IV PRN (01:10)
[2024-10-15 03:47] LABS: Basophils # (auto) 0 10 ^3/uL (0-0.2); Basophils % (auto) 0.3 % (0.0-2.0); Eosinophils # (auto) 0.1 10 ^3/uL (0-0.8); Eosinophils % (auto) 0.8 % (0.0-7.0); Mean Corpuscular Hgb Conc. 35.3 g/dL (32.0-36.0); Neutrophils # (auto) 7.2 10 ^3/uL (1.6-8.6)
[2024-10-15 03:53] LABS: Hematocrit 35.9 % (41.0-53.0); Hemoglobin 12.7 g/dL (13.5-17.5); Lymphocytes # (auto) 0.8 10 ^3/uL (0.4-5.4); Lymphocytes % (auto) 8.6 % (10.0-50.0); Mean Corpuscular Volume 99.1 fL (80.0-100.0); Monocytes # (auto) 1.2 10 ^3/uL (0-1.3); Monocytes % (auto) 12.5 % (0.0-12.0); Neutrophils % (auto) 77.8 % (37.0-80.0); Nucleated Red Blood Cells % 0.1 %; Platelet Count (auto) 176 10^3/uL (140-450); Red Blood Cells 3.62 10^6/uL (4.5-5.90); White Blood Cell 9.2 10^3/uL (4.4-10.8)
[2024-10-15 04:03] LABS: Albumin 3.5 g/dL (3.2-4.8); Alkaline Phosphatase 82 U/L (46-116); Anion Gap 15 (5-15); Calcium 8.8 mg/dL (8.7-10.4); Carbon Dioxide 22 mmol/L (20-31); Chloride 106 mmol/L (98-107); Glucose 103 mg/dL (74-106); Magnesium 1.6 mg/dL (1.6-2.6); Phosphorus 2.9 mg/dL (2.4-5.1); Sodium 143 mmol/L (136-145); Total Protein 6.2 g/dL (5.7-8.2)
[2024-10-15 04:04] LABS: Alanine Aminotransferase 148 U/L (7-40); BUN/Creatinine Ratio 6.8 (10.0-20.0); Bilirubin, Total 0.5 mg/dL (0.2-1.0); Blood Urea Nitrogen < 5 mg/dL (9-23); Potassium 2.8 mmol/L (3.5-5.1)
[2024-10-15 04:21] LABS: Aspartate Aminotransferase 51 U/L (13-40)
--- NOTE | 2024-10-15 05:30 | DVH ---
EXAM: XR Chest, 1 View CLINICAL INDICATION: protocol TECHNIQUE: Frontal view of the chest. COMPARISON: XY CHEST PORTABLE on DOS: 10/14/24, XY CHEST PORTABLE on DOS: 10/14/24, XY CHEST PORTABLE on DOS: 10/13/24, XY CHEST XRAY 1 VIEW on DOS: 10/11/24, XY CHEST PORTABLE on DOS: 10/10/24 FINDINGS: LUNGS AND PLEURAL SPACES: Pulmonary venous congestion. No consolidation. No pneumothorax. HEART: Unremarkable. No cardiomegaly. MEDIASTINUM: Unremarkable. Normal mediastinal contour. BONES/JOINTS: Unremarkable. No acute fracture. TUBES, LINES AND DEVICES: Left internal jugular central venous catheter tip in the superior vena ca va. Removal of ETT. OTHER FINDINGS: . . . . IMPRESSION: Pulmonary venous congestion.
[2024-10-15] MEDS: MAGNESIUM SULFATE 1GM/100ML 100 ML IV ONE (05:32)
[2024-10-15] MEDS: POTASSIUM CHL 20MEQ/100ML 100 ML IV SCH (05:33)
[2024-10-15] MEDS ORDERED: METOPROLOL SUCCINATE XL 50 MG TAB PO SCH (10:00)
[2024-10-15] MEDS: amLODIPine BESYLATE 5 MG TAB PO SCH (10:38)
[2024-10-15 11:10] LABS: Chloride 105 mmol/L (98-107); Sodium 143 mmol/L (136-145)
[2024-10-15 11:11] LABS: Anion Gap 13 (5-15); Carbon Dioxide 25 mmol/L (20-31); Potassium 3.2 mmol/L (3.5-5.1)
[2024-10-15 11:12] LABS: Calcium 9.2 mg/dL (8.7-10.4)
[2024-10-15 11:17] LABS: Magnesium 1.7 mg/dL (1.6-2.6)
[2024-10-15 11:18] LABS: BUN/Creatinine Ratio 7.2 (10.0-20.0); Blood Urea Nitrogen < 5 mg/dL (9-23); Glucose 113 mg/dL (74-106)
[2024-10-15] MEDS ORDERED: LORazepam 2MG/ML-1ML VIAL IV PRN (14:30)
--- NOTE | 2024-10-15 14:42 | DVHPN2 ---
Progress Note - Dictate Date Seen: Oct 15, 2024 Has the PT tested + for MRSA If YES, has PT been informed?: No Medical Necessity Reason Pt with a Central, PICC or Fol: Yes The following are medically ne: Central Line, Valles Catheter Reason for valles catheter: Strict I&O Subjective Patient was seen and evaluated in follow up in the ICU. Patient is on 2 LPM NC. Patient passed swallow eval today, started on a clear liquid diet. K 3.2, AST 51, ALT 148. Chest x-ray shows pulmonary venous congestion. Patients electrolytes are being replaced. vital signs Vital Sign Date Time Temp Pulse Resp B/P (MAP) Pulse Ox O2 Delivery O2 Flow Rate FiO2 10/15/24 10:38 162/83 10/15/24 06:56 102 10/15/24 06:52 16 95 10/15/24 05:50 Nasal Cannula* 2 28 10/15/24 04:07 98.9 98.9 Total Intake and Output 10/14/24 10/14/24 10/15/24 15:00 23:00 07:00 Intake Total 204.685 ml 0 ml 200 ml Output Total 3750 ml 1950 ml Balance 204.685 ml -3750 ml -1750 ml medications Current Medications Medications Dose Ordered Sig/Jose Route Start Time Stop Time Status Last Admin Dose Admin Acetaminophen 650 mg Q6HP PRN PO 10/09/24 12:45 Nitroglycerin 0.4 mg Q5MINP PRN SL 10/09/24 12:45 Morphine Sulfate 2 mg Q30M PRN IV 10/09/24 13:30 Tamsulosin HCl 0.4 mg QPM PO 10/09/24 18:00 10/13/24 17:41 0.4 MG Propofol 100 ml @ 1.767 mls/ hr Q24H IV 10/09/24 14:00 10/14/24 01:32 17.67 MLS/HR Fentanyl Citrate 250 ml @ 2.5 mls/hr Q24H IV 10/09/24 16:00 10/14/24 10:00 20 MLS/HR Pantoprazole Sodium 40 mg DAILY IV 10/12/24 10:00 10/15/24 10:37 40 MG Enteral Nutritional Formula 1,000 ml 45ML/HR GT 10/11/24 13:45 10/11/24 21:12 1,000 ML Enoxaparin Sodium 40 mg DAILY SC 10/14/24 10:00 10/15/24 10:38 40 MG Amlodipine Besylate 10 mg DAILY PO 10/15/24 10:00 10/15/24 10:38 10 MG Labetalol HCl 10 mg Q4HPRN PRN IV 10/14/24 23:30 10/15/24 06:56 10 MG objective GENERAL: Alert and oriented x 3. No acute distress. EYES: PERRL, EOMI. Anicteric. HENT: Moist mucous membranes. LUNGS: Decreased breath sounds. CARDIOVASCULAR: Regular rate and rhythm. ABDOMEN: Soft, nontender and nondistended. EXTREMITIES: No edema. SKIN: Warm, dry. laboratory and microbiology Laboratory Tests 10/15/24 10:48 10/15/24 03:00 Test 10/15/24 10:48 Range/Units Serum Glucose 113 H 74-106 mg/dL Problem List Benzodiazepine overdose. Atrial fibrillation with rapid ventricular response, stage unknown, now NSR. NSTEMI, likely type II secondary to above. Rule out structural heart disease. Hypertension. Dyslipidemia. History of left [id number] amputation. Assessment/Plan Continued all current supportive medical care. Amlodipine. DVT and GI prophylactics. IV Hydralazine for SBP >150. Metoprolol. Morphine for pain management. Additional plan as per the hospital course. Critical care time of 45 minutes provided to include time spent evaluation of patient at bedside, when appropriate patient/family education for diagnosis, treatment plan, review of pertinent medical information and discussion of care with specialty providers and PCP. Dietary Evaluation Review Comments: 1) Initiate MVI @ 1 tb qd 2) Consider Vitamin C @ 500 mg bid and zinc sulfate @ 220 mg qd for 7-10 days 3) If patient remains NPO > 7 days, consider EN/TPN to meet at least 75% of estimated daily needs 4) If GI is preferred, consider Vital AF 1.2 @ 45 mL/hr goal rate as tolerated. TF regimen will provide 1576 kcals (including Propofol), 81g Pro, and 903 mL free H2O per 24 hrs. Goal rate will meet ~93% estimated energy needs and ~74% estimated protein neeeds 5) Advance to regular diet when medically feasible, pending DAY WORKER approval 6) Follow-up with long term care social worker regarding suicidal ideation 7) Follow-up with cardiology and pulmonology 8) Continue to monitor I&O, labs, and skin integrity Expected Outcomes/Goals: 1) patient to receive nutrition support within 7 days of NPO status 2) labs to improve 3) diet to advance 4) f/u in 2-3 days Plan discussed with: Patient RAI CRUZ MD Oct 15, 2024 13:14
[2024-10-15] MEDS: MAGNESIUM OXIDE 400 MG TAB PO ONE (14:58)
[2024-10-15] MEDS: POTASSIUM EFFERVESENT TAB 25 MEQ PO ONE (14:58)
[2024-10-15] MEDS: hydrALAZINE HCL 20 MG/ML VL IV PRN (15:31)
--- NOTE | 2024-10-15 16:52 | DVHPNRES ---
Progress Note Date Seen: Oct 15, 2024 Resident Creating Document: RENETTA SCHWARTZ RESIDENT Has the PT tested + for MRSA If YES, has PT been informed?: No Medical Necessity Reason Pt with a Central, PICC or Fol: Yes Reason for valles catheter: Strict I&O Medical Necessity Reason Patient seen and examined. He was extubated yesterday ( 10/14/2024). He was NC overnight and did not have any complaints. Labs this morning revealed K : 2.8. Which was replaced. Patient had bedside swallow evaluation of which he did well. Diet resumed to clear fluid and will gradually advance. Patient is overall stable. IV access discontinued, valles's catheter removed and central line removed as well. Resumed po mediation. IV hydralazine 10mg prn is on board for elevated BP. Patient down graded to Telemetry. Beside PHQ-9 question: score 8 indicating mild depression. Psychiatry consult, Subjective Review of Systems Constitutional: Denies fever no chills no feeling of malaise HEENT: Denies headache, ear pain, ear discharges, conjunctivitis, nasal discharge throat pain Cardiovascular: Denies chest pain, palpitation, orthopnea, PND, or pedal edema Respiratory: Denies shortness of breath, cough cough, sputum production, hemoptysis, GI: Denies abdominal pain, nausea, vomiting, diarrhea, hematemesis, hematochezia, : Denies frequency, urgency, hematuria, Endocrine: Denies unintentional weight gain or weight loss, feeling of hot flashes, Esvin: Denies easy bruising, bleeding disorders, epistaxis Musculoskeletal: Denies joint pains, muscle aches Psych: No evidence of depression, romero, suicidal ideation Objective vital signs Vital Sign Date Time Temp Pulse Resp B/P (MAP) Pulse Ox O2 Delivery O2 Flow Rate FiO2 10/15/24 15:45 110 20 124/76 (92) 98 10/15/24 12:00 98.9 98.9 10/15/24 10:00 Nasal Cannula* 3 32 Total Intake and Output 10/14/24 10/14/24 10/15/24 15:00 23:00 07:00 Intake Total 204.685 ml 0 ml 200 ml Output Total 3750 ml 1950 ml Balance 204.685 ml -3750 ml -1750 ml medications Current Medications Medications Dose Ordered Sig/Jose Route Start Time Stop Time Status Last Admin Dose Admin Acetaminophen 650 mg Q6HP PRN PO 10/09/24 12:45 Nitroglycerin 0.4 mg Q5MINP PRN SL 10/09/24 12:45 Morphine Sulfate 2 mg Q30M PRN IV 10/09/24 13:30 Tamsulosin HCl 0.4 mg QPM PO 10/09/24 18:00 10/13/24 17:41 0.4 MG Pantoprazole Sodium 40 mg DAILY IV 10/12/24 10:00 10/15/24 10:37 40 MG Enoxaparin Sodium 40 mg DAILY SC 10/14/24 10:00 10/15/24 10:38 40 MG Amlodipine Besylate 10 mg DAILY PO 10/15/24 10:00 10/15/24 10:38 10 MG Labetalol HCl 10 mg Q4HPRN PRN IV 10/14/24 23:30 10/15/24 06:56 10 MG Hydralazine HCl 10 mg Q6HP PRN IV 10/15/24 13:45 10/15/24 15:31 10 MG Lorazepam 1 mg Q6HP PRN IV 10/15/24 14:30 Examination General Appearance: Awake; s/p LHC 10/13/2024, HEENT: Atraumatic Respiratory: extubated on NC 3L, Mild crackles Cardiovascular: Sinus rhythm. 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 Complete 10/09/24 09:12 Sputum Gram Stain - Final Resulted 10/09/24 09:12 Sputum Respiratory Culture - Preliminary Resulted Problem List/Assessment/Plan Problem List/Assessment/Plan Assessment and plan: NEURO: Acute metabolic encephalopathy due to benzodiazepine overdose Awake and following command 10/14/2024 - Flumazenil - s/p intubation, Now extubated - Currently on propofol and fentanyl lowest does. - Possible percedex tomorrow in preparation for Cpap trial CARDIOVASCULAR: Atrial fibrillation with rapid ventricular response, stage unknown, now NSR NSTEMI, likely type II secondary to above Atrial fibrillation with rapid ventricular response, stage unknown Hypotension - Amiodarone drip - Transthoracic echocardiogram to evaluate cardiac function - Vasopressors for hemodynamic support - DE rule out - PULMONARY: Acute hypoxic respiratory failure Possible aspiration pneumonia Pneumonia gram-/gram+ Pulmonary edema - extubated - CxR showed Bibasilar atelectasis or pneumonia - Cefepime 1gm q12 hr and vancomycin - furosemide GASTROINTESTINAL: Acute liver failure/ Drug Induce liver injury vs shock liver AST: 182--> 51 ALT: 820--> 148 Alkaline phosphate: 67 T. 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 Psychiatric history - Multiple suicidal attempts - Multiple episodes of drug overdose - PHQ score: 8, Mild Depression Psychiatry consult DIET: Clear liquid diet and advance as tolerated DVT prophylax: Lovenox Code status: Full code LINES/DRAINS/ACCESS: Discontinued Extubated IV access: Central line right neck placed on 10/09/2024 ( Disconnected); Left Central line 10/14/2024 Drips: off fentanyl, propofol; levophed 10/14/2024 Valles catheter: Placed on 10/09/2024, Discontinued 10/15/2024 DISPOSITION: To Telemetry extubated 10/14/2024 Patient's status discussed with Nurse Critical care time spent more than 45 minutes. Case discussed with Dr. Herron Plan discussed with: Other (RN) Plan discussed with: Patient My Orders My Orders Orders - RENETTA SCHWARTZ RESIDENT Procedure Category Date Status Time Clear Liq Diet DIET 10/15/24 Transmitted Dinner D/C Valles BAN 10/15/24 In Process 13:36 Hydralazine Injection PHA 10/15/24 In Process (Apresoline Inject 13:45 Lorazepam 2mg/Ml Inj PHA 10/15/24 In Process (Ativan Inj) 14:30 Basic Metabolic Panel LAB 10/16/24 Verified 04:00 Blood Alcohol LAB 10/16/24 Verified 04:00 Dietary Evaluation Review Comments: 1) Initiate MVI @ 1 tb qd 2) Consider Vitamin C @ 500 mg bid and zinc sulfate @ 220 mg qd for 7-10 days 3) If patient remains NPO > 7 days, consider EN/TPN to meet at least 75% of estimated daily needs 4) If GI is preferred, consider Vital AF 1.2 @ 45 mL/hr goal rate as tolerated. TF regimen will provide 1576 kcals (including Propofol), 81g Pro, and 903 mL free H2O per 24 hrs. Goal rate will meet ~93% estimated energy needs and ~74% estimated protein neeeds 5) Advance to regular diet when medically feasible, pending TELECOMMUNICATION OPERATOR approval 6) Follow-up with social security specialist regarding suicidal ideation 7) Follow-up with cardiology and pulmonology 8) Continue to monitor I&O, labs, and skin integrity Expected Outcomes/Goals: 1) patient to receive nutrition support within 7 days of NPO status 2) labs to improve 3) diet to advance 4) f/u in 2-3 days RENETTA SCHWARTZ RESIDENT Oct 15, 2024 16:52
[2024-10-15] MEDS: FUROSEMIDE 20 MG/2 ML VIAL IV ONE (18:22)
[2024-10-15] MEDS: LOPERAMIDE HCL 2 MG CAP/TAB PO ONE (21:14)
[2024-10-16 01:00] VITALS: BP 115/78; PULSE 115; RESP 18; TEMP 98; O2SAT 96
[2024-10-16 05:00] VITALS: BP 146/92; PULSE 111; RESP 18; TEMP 98.4; O2SAT 97
[2024-10-16 07:00] VITALS: PULSE 105; RESP 18; O2SAT 97
[2024-10-16 07:14] LABS: Chloride 99 mmol/L (98-107); Potassium 3.2 mmol/L (3.5-5.1); Sodium 139 mmol/L (136-145)
[2024-10-16 07:15] LABS: Anion Gap 13 (5-15); Calcium 9.3 mg/dL (8.7-10.4); Carbon Dioxide 27 mmol/L (20-31)
[2024-10-16 07:20] LABS: Glucose 101 mg/dL (74-106)
[2024-10-16 07:21] LABS: Blood Urea Nitrogen 6 mg/dL (9-23)
--- NOTE | 2024-10-16 07:35 | ECG ---
[facility] Test Date: 2024-10-15 Test Time: 13:48:53 Pat Name: CAREN BOYCE Department: ICU Room: 0286T A Gender: M Rewrite Editor: jesica : 1950 Requested By: RENETTA SCHWARTZ Order Number: [id number] Reading MD: Saeed Gama Measurements Intervals [place] Rate: 98 P: 47 GA: 123 QRS: 82 QRSD: 80 T: 34 QT: 437 QTc: 559 Interpretive Statements Sinus rhythm Low voltage, extremity leads Consider right ventricular hypertrophy Prolonged QT interval Electronically Signed On 10-17-2024 9:31:59 PDT by Saeed Gama Please click the below link to view image of tracing.
[2024-10-16] MEDS: POTASSIUM EFFERVESENT TAB 25 MEQ PO ONE (09:06)
--- NOTE | 2024-10-16 10:06 | DVH ---
LEFT Upper Extremity Venous Duplex Clinical History: left arm swelling Comparison: None Findings: Duplex Doppler evaluation of the venous system of the LEFT lower neck and upper extremity including c olor Doppler and spectral/pulsed waveform analysis was performed. The internal jugular vein was not seen The subclavian vein is patent on color Doppler evaluation without intraluminal thrombus and demonstra sarai waveform variability. The visualized portion of the brachiocephalic vein is patent on color Doppler evaluation without intr aluminal thrombus and demonstrates waveform variability. The axillary vein demonstrates appropriate compressibility and waveform variability. The brachial veins demonstrate appropriate compressibility and patency on Doppler evaluation. The basilic vein demonstrates appropriate compressibility and patency on Doppler evaluation. The cephalic vein demonstrates appropriate compressibility and patency on Doppler evaluation. Impression: No venous thrombus identified in the LEFT upper extremity vessels evaluated above. If clinical concern/symptoms persist or worsen, short-interval follow-up study is suggested.
--- NOTE | 2024-10-16 13:01 | DVHDSRES ---
Discharge Summary Date of Admission Resident Creating Document: RENETTA SCHWARTZ Oct 09, 2024 at 12:40 Date of Discharge: Oct 16, 2024 Admitting Diagnosis Benzodiazepine overdose Labs/Diagnostic Data: Signed PATIENT: CAREN BOYCE ACCT: [id number] UNIT: [id number] : 1950 LOC: [facility] / BED: 0286T / A AGE / SEX: 74 / M ADM STATUS: ADM IN SERVICE 0847 ORDERING PHYSICIAN: RENETTA SCHWARTZ PROCEDURE(s): LUDVT - LT Upper DVT REASON: left arm swelling ORDER NUMBER(s): [id number], ACCESSION NUMBER(s): [id number] LEFT Upper Extremity Venous Duplex Clinical History: left arm swelling Comparison: None Findings: Duplex Doppler evaluation of the venous system of the LEFT lower neck and upper extremity including color Doppler and spectral/pulsed waveform analysis was performed. The internal jugular vein was not seen The subclavian vein is patent on color Doppler evaluation without intraluminal thrombus and demonstrates waveform variability. The visualized portion of the brachiocephalic vein is patent on color Doppler evaluation without intraluminal thrombus and demonstrates waveform variability. The axillary vein demonstrates appropriate compressibility and waveform variability. The brachial veins demonstrate appropriate compressibility and patency on Doppler evaluation. The basilic vein demonstrates appropriate compressibility and patency on Doppler evaluation. The cephalic vein demonstrates appropriate compressibility and patency on Doppler evaluation. Impression: No venous thrombus identified in the LEFT upper extremity vessels evaluated above. If clinical concern/symptoms persist or worsen, short-interval follow-up study is suggested. ATED BY: MISAEL BAUER MD DICTATED DATE/TIME: 10/16/24 1004 PATIENT: CAREN BOYCE ACCT: [id number] UNIT: [id number] : 1950 LOC: [facility] / BED: [id number] / A AGE / SEX: 74 / M ADM STATUS: ADM IN SERVICE 0400 ORDERING PHYSICIAN: RENETTA SCHWARTZ PROCEDURE(s): CXR1 - CHEST XRAY 1 VIEW REASON: protocol ORDER NUMBER(s): [id number], ACCESSION NUMBER(s): [id number] EXAM: XR Chest, 1 View CLINICAL INDICATION: protocol TECHNIQUE: Frontal view of the chest. COMPARISON: XY CHEST PORTABLE on DOS: 10/14/24, XY CHEST PORTABLE on DOS: 10/14/24, XY CHEST PORTABLE on DOS: 10/13/24, XY CHEST XRAY 1 VIEW on DOS: 10/11/24, XY CHEST PORTABLE on DOS: 10/10/24 FINDINGS: LUNGS AND PLEURAL SPACES: Pulmonary venous congestion. No consolidation. No pneumothorax. HEART: Unremarkable. No cardiomegaly. MEDIASTINUM: Unremarkable. Normal mediastinal contour. BONES/JOINTS: Unremarkable. No acute fracture. TUBES, LINES AND DEVICES: Left internal jugular central venous catheter tip in the superior vena cava. Removal of ETT. OTHER FINDINGS: . . . . IMPRESSION: Pulmonary venous congestion. ATED BY: CELY HALL MD DICTATED DATE/TIME: 10/15/24525 PATIENT: CAREN BOYCE ACCT: [id number] UNIT: [id number] : 1950 LOC: [facility] ROOM / BED: [address] [place] [address] AGE / SEX: 74 / M ADM STATUS: ADM IN SERVICE 1236 ORDERING PHYSICIAN: MARLENY HERRON MD PROCEDURE(s): CXRP - CHEST PORTABLE REASON: central line placement ORDER NUMBER(s): [id number], ACCESSION NUMBER(s): [id number] EXAM: XY CHEST PORTABLE Indication: central line placement Technique: Single frontal view of the chest was obtained Comparison: XY CHEST PORTABLE on DOS: 10/14/24, XY CHEST PORTABLE on DOS: 10/13/24, XY CHEST XRAY 1 VIEW on DOS: 10/11/24, XY CHEST PORTABLE on DOS: 10/10/24, XY CHEST XRAY 1 VIEW on DOS: 10/09/24 FINDINGS: Lines and Tubes: Endotracheal tube, enteric tube, left internal jugular central venous catheter tips project in appropriate position. Lungs: Bibasilar opacities. Pleura: No effusion. No pneumothorax. Cardiomediastinal contours: Unremarkable Bones: No acute osseous abnormality. IMPRESSION: Bibasilar opacities. Lines and tubes in appropriate position. ATED BY: NISHANT THOMPSON MD DICTATED DATE/TIME: 10/14/24 1310 PATIENT: CAREN BOYCE ACCT: [id number] UNIT: [id number] : 1950 LOC: ICU [facility] ROOM / BED: [address] [place] [address] A AGE / SEX: 74 / M ADM STATUS: ADM IN SERVICE 0512 ORDERING PHYSICIAN: RENETTA SCHWARTZ PROCEDURE(s): CXRP - CHEST PORTABLE REASON: RESP FAILURE ORDER NUMBER(s): [id number], ACCESSION NUMBER(s): [id number] EXAM: XY CHEST PORTABLE Indication: RESP FAILURE Technique: Single frontal view of the chest was obtained Comparison: XY CHEST PORTABLE on DOS: 10/13/24, XY CHEST XRAY 1 VIEW on DOS: 10/11/24, XY CHEST PORTABLE on DOS: 10/10/24, XY CHEST XRAY 1 VIEW on DOS: 10/09/24, XY CHEST PORTABLE on DOS: 10/09/24, XY CHEST PORTABLE on DOS: 10/13/24 FINDINGS: Lines and Tubes: The endotracheal tube terminates 3.2 cm above the cherri. NG tube is appropriate. Lungs: Bilateral interstitial prominence. Bibasilar opacities. Pleura: No effusion. No pneumothorax. Cardiomediastinal contours: Unremarkable Bones: No acute osseous abnormality. IMPRESSION: Worsening pulmonary edema compared to prior exam. ATED BY: NISHANT THOMPSON MD DICTATED DATE/TIME: 10/14/24 0816 PATIENT: CAREN BOYCE ACCT: [id number] UNIT: [id number] : 1950 LOC: ICU [facility] ROOM / BED: [address] [place] [address] A AGE / SEX: 74 / M ADM STATUS: ADM IN SERVICE 0400 ORDERING PHYSICIAN: RAI CRUZ MD PROCEDURE(s): CXRP - CHEST PORTABLE REASON: RESP FAILURE ORDER NUMBER(s): [id number], ACCESSION NUMBER(s): [id number] CHEST RADIOGRAPH Indication: RESP FAILURE Technique: Single frontal view of the chest was obtained Comparison: XY CHEST XRAY 1 VIEW on DOS: 10/11/24 FINDINGS: Lines and Tubes: The endotracheal tube terminates 3.2 cm above the cherri. NG Lungs: Bilateral interstitial prominence. Bibasilar opacities. Pleura: No effusion. No pneumothorax. Cardiomediastinal contours: Unremarkable Bones: No acute osseous abnormality. IMPRESSION: 1. Pulmonary vascular congestion. Bibasilar opacities which may reflect superimposed atelectasis or pneumonia. ATED BY: HIEN AGUILLON MD DICTATED DATE/TIME: 10/13/24 0504 PATIENT: CAREN BOYCE ACCT: [id number] UNIT: [id number] : 1950 LOC: [facility] ROOM / BED: [address] [place] [address] AGE / SEX: 74 / M ADM STATUS: ADM IN SERVICE 0400 ORDERING PHYSICIAN: RENETTA SCHWARTZ RESIDENT PROCEDURE(s): CXR1 - CHEST XRAY 1 VIEW REASON: rule out aspiration pneumonia ORDER NUMBER(s): [id number], ACCESSION NUMBER(s): [id number] CHEST RADIOGRAPH Indication: rule out aspiration pneumonia Technique: Frontal view of the chest. Comparison: XY CHEST PORTABLE on DOS: 10/10/24, XY CHEST XRAY 1 VIEW on DOS: 10/09/24, XY CHEST PORTABLE on DOS: 10/09/24, XY CHEST PORTABLE on DOS: 10/10/24 FINDINGS: LUNGS AND PLEURAL SPACES: Bibasilar atelectasis or pneumonia. No pneumothorax. HEART: Unremarkable. No cardiomegaly. MEDIASTINUM: Unremarkable. Normal mediastinal contour. BONES/JOINTS: Unremarkable. No acute fracture. TUBES, LINES AND DEVICES: The endotracheal tube (ETT) is in satisfactory position. Right internal jugular central venous catheter tip in the superior vena cava. Enteric tube tip cannot be seen but is below the diaphragm. IMPRESSION: Bibasilar atelectasis or pneumonia. ATED BY: MISAEL BAUER MD DICTATED DATE/TIME: 10/11/24 0530 PATIENT: CAREN BOYCE ACCT: [id number] UNIT: [id number] : 1950 LOC: ICU [facility] RO[facility] / BED: [address] [place] [address] A AGE / SEX: 74 / M ADM STATUS: ADM IN SERVICE 0400 ORDERING PHYSICIAN: TERI LUCAS DNP PROCEDURE(s): CXRP - CHEST PORTABLE REASON: INTUBATED ORDER NUMBER(s): [id number], ACCESSION NUMBER(s): [id number] EXAM: XR Chest, 1 View CLINICAL INDICATION: INTUBATED TECHNIQUE: Frontal view of the chest. COMPARISON: XY CHEST XRAY 1 VIEW on DOS: 10/09/24, XY CHEST PORTABLE on DOS: 10/09/24 FINDINGS: LUNGS AND PLEURAL SPACES: Bibasilar atelectasis or pneumonia. No pneumothorax. HEART: Unremarkable. No cardiomegaly. MEDIASTINUM: Unremarkable. Normal mediastinal contour. BONES/JOINTS: Unremarkable. No acute fracture. TUBES, LINES AND DEVICES: The endotracheal tube (ETT) is in satisfactory position. Right internal jugular central venous catheter tip in the superior vena cava. Enteric tube tip cannot be seen but is below the diaphragm. OTHER FINDINGS: . . . . IMPRESSION: Bibasilar atelectasis or pneumonia. ATED BY: CELY HALL MD DICTATED DATE/TIME: 10/10/24 0549 PATIENT: CAREN BOYCE ACCT: [id number] UNIT: [id number] : 1950 LOC: [facility] ROOM / BED: [address] [place] [address] AGE / SEX: 74 / M ADM STATUS: ADM IN SERVICE 1427 ORDERING PHYSICIAN: STAR FOX MD PROCEDURE(s): CXR1 - CHEST XRAY 1 VIEW REASON: CONFIRM CENTRAL LINE ORDER NUMBER(s): [id number], ACCESSION NUMBER(s): [id number] CHEST RADIOGRAPH Indication: CONFIRM CENTRAL LINE Technique: Single frontal view of the chest was obtained COMPARISON: XY CHEST PORTABLE on DOS: 10/09/24 FINDINGS: Lines and Tubes: Endotracheal tube, enteric catheter and right central venous catheter in satisfactory position. Lungs: Patchy bilateral airspace disease. Pleura: No effusion. No pneumothorax. Cardiomediastinal contours: Unremarkable Bones: Unremarkable IMPRESSION: Right central venous catheter in satisfactory position. ATED BY: KALEB GUEVARA MD DICTATED DATE/TIME: 10/09/24 1452 PATIENT: CAREN BOYCE ACCT: [id number] UNIT: [id number] : 1950 LOC: ER ROOM / BED: / AGE / SEX: 74 / M ADM STATUS: REG ER SERVICE 0909 ORDERING PHYSICIAN: STAR FOX MD PROCEDURE(s): CXRP - CHEST PORTABLE REASON: sob ORDER NUMBER(s): [id number], ACCESSION NUMBER(s): [id number] EXAM: XY CHEST PORTABLE Indication: sob Technique: Single frontal view of the chest was obtained Comparison: None FINDINGS: Lines and Tubes: Endotracheal tube projects 4.3 cm above the cherri. Enteric tube tip projects over the expected region of the stomach. Lungs: Linear atelectasis versus scarring in the left lower lung. Pleura: No effusion. No pneumothorax. Cardiomediastinal contours: Unremarkable Bones: No acute osseous abnormality. * IMPRESSION: Endotracheal and enteric tube project in appropriate position. Linear atelectasis versus scarring in the left lower lung. ATED BY: NISHANT THOMPSON MD DICTATED DATE/TIME: 10/09/24 1015 PATIENT: CAREN BOYCE ACCT: [id number] UNIT: [id number] : 1950 LOC: ER ROOM / BED: / AGE / SEX: 74 / M ADM STATUS: REG ER SERVICE 0908 ORDERING PHYSICIAN: STAR FOX MD PROCEDURE(s): HWOCT - HEAD WITHOUT CONTRAST REASON: altered ORDER NUMBER(s): [id number], ACCESSION NUMBER(s): [id number] EXAM: CT HEAD WITHOUT CONTRAST INDICATION: Altered TECHNIQUE: CT of the head without intravenous contrast. Coronal and sagittal reformatted images are submitted. Radiation Dose : 1. Head: CT Dose: CTDI volume is 55.64 mGy. Dose-length product is 1013.29 mGy*cm The dose indicators for CT are the volume Computed Tomography (CT) Dose Index (CTDIvol) and the Dose Length Product (DLP), and are measured in units of mGy and mGy-cm, respectively. These indicators are not patient dose, but values generated from the CT scanner acquisition factors. The report includes radiation exposure data for exposures received during this examination. All CT scans at this medical facility are performed using dose modulation techniques as appropriate to a performed exam including the following: Automated exposure control was utilized; adjustment of the MA and/or KV according to patient size; and use of iterative reconstruction technique. COMPARISON: None FINDINGS: There is no evidence of acute intracranial hemorrhage, extra-axial collection, mass effect, midline shift, herniation or hydrocephalus. The ventricles, sulci and cisterns are age appropriate. The gary-white differentiation is intact. The visualized paranasal sinuses and mastoid air cells are clear. No depressed calvarial fracture. The surrounding soft tissues are unremarkable. IMPRESSION: 1. No evidence of acute intracranial abnormality. ATED BY: HIEN AGUILLON MD DICTATED DATE/TIME: 10/09/24 1157 Laboratory Results Test 10/16/24 06:27 10/15/24 10:48 10/15/24 03:00 10/14/24 15:17 Sodium Level 139 mmol/L (136-145) Potassium Level 3.2 mmol/L (3.5-5.1) Chloride Level 99 mmol/L (98-107) Carbon Dioxide Level 27 mmol/L (20-31) Anion Gap 13 (5-15) Blood Urea Nitrogen 6 mg/dL (9-23) Creatinine 0.67 mg/dL (0.700-1.30) Glomerular Filtration Rate Calc 99 mL/min (>90) BUN/Creatinine Ratio 9.0 (10.0-20.0) Serum Glucose 101 mg/dL (74-106) Calcium Level 9.3 mg/dL (8.7-10.4) Magnesium Level 1.7 mg/dL (1.6-2.6) White Blood Count 9.2 10^3/uL (4.4-10.8) Red Blood Count 3.62 10^6/uL (4.5-5.90) Hemoglobin 12.7 g/dL (13.5-17.5) Hematocrit 35.9 % (41.0-53.0) Mean Corpuscular Volume 99.1 fL (80.0-100.0) Mean Corpuscular Hemoglobin 35.0 pg (28.0-32.0) Mean Corpuscular Hemoglobin Concent 35.3 g/dL (32.0-36.0) Red Cell Distribution Width 15.0 % (11.8-14.3) Platelet Count 176 10^3/uL (140-450) Mean Platelet Volume 8.0 fL (6.9-10.8) Neutrophils (%) (Auto) 77.8 % (37.0-80.0) Lymphocytes (%) (Auto) 8.6 % (10.0-50.0) Monocytes (%) (Auto) 12.5 % (0.0-12.0) Eosinophils (%) (Auto) 0.8 % (0.0-7.0) Basophils (%) (Auto) 0.3 % (0.0-2.0) Neutrophils # (Auto) 7.2 10 ^3/uL (1.6-8.6) Lymphocytes # (Auto) 0.8 10 ^3/uL (0.4-5.4) Monocytes # (Auto) 1.2 10 ^3/uL (0-1.3) Eosinophils # (Auto) 0.1 10 ^3/uL (0-0.8) Basophils # (Auto) 0 10 ^3/uL (0-0.2) Nucleated Red Blood Cells 0.1 % Phosphorus Level 2.9 mg/dL (2.4-5.1) Total Bilirubin 0.5 mg/dL (0.2-1.0) Aspartate Amino Transferase (AST) 51 U/L (13-40) Alanine Aminotransferase (ALT) 148 U/L (7-40) Alkaline Phosphatase 82 U/L (46-116) Total Protein 6.2 g/dL (5.7-8.2) Albumin 3.5 g/dL (3.2-4.8) Blood Gas Specimen Type Arterial Blood Gas Sample Site Left radial Blood Gas Patient Temperature 37.0 Arterial Blood Date Drawn [id number] Arterial Blood pH 7.405 (7.350-7.450) Arterial Blood Partial Pressure CO2 29.6 mmHg (35.0-48.0) Arterial Blood Partial Pressure O2 81.1 mmHg (83.0-108.0) Arterial Blood HCO3 18.1 mmol/L (21.0-28.0) Arterial Blood Oxygen Saturation 96.4 % (94.0-98.0) Arterial Blood Base Excess -5.3 mmol/L (-2.0-3.0) Arterial Blood Oxyhemoglobin 95.8 % (94.0-98.0) Arterial Blood Carboxyhemoglobin 0.5 % (0.5-1.5) Arterial Blood Methemoglobin 0.1 % (0.0-1.5) Jak Test Modified Blood Gas Total Hemoglobin 13.90 g/dL (13.5-17.5) Blood Gas Modality Vent - cpap FiO2 % 35.0 Blood Gas Pressure Support 7 Blood Gas PEEP or CPAP 5.0 Blood Gas Comments Test 10/14/24 12:03 10/14/24 08:19 10/13/24 12:52 10/13/24 03:15 Vancomycin Level Trough 19.5 ug/mL (5-10) Blood Gas Set Respiration Rate 16.0 Blood Gas Tidal Volume 500.0 POC Glucose 83 mg/dl (70-106) Prothrombin Time 11.4 sec (9.3-11.8) Prothrombin Time INR 1.08 (0.9-1.15) Activated Partial Thromboplast Time 39.4 SEC (24.5-34.5) Test 10/13/24 00:30 10/11/24 03:13 10/10/24 17:46 10/10/24 03:12 Urine Color Light-yellow (Yellow) Urine Clarity Clear (Clear) Urine pH 6.0 (5.0-9.0) Urine Specific [place] 1.020 (1.001-1.035) Urine Protein Trace (Negative) Urine Ketones Negative (Negative) Urine Blood Negative /uL (Negative) Urine Nitrite Negative (Negative) Urine Bilirubin Negative (Negative) Urine Urobilinogen Normal mg/dL (Negative) Urine Leukocyte Esterase Negative /uL (Negative) Urine RBC 5 /hpf (0 - 3) Urine Microscopic WBC 1 /HPF (0-3) Urine Squamous Epithelial Cells Few /hpf (<5) Urine Bacteria Few /hpf (None Seen) Urine Hyaline Casts Few /lpf (0 - 2) Urine Mucus Few (None Seen) Urine Glucose Normal mg/dL (Normal) Lactic Acid Level 1.1 mmol/L (0.4-2.0) Troponin I High Sensitivity 983 ng/L (</=54) Triglycerides Level 120 mg/dL (< 150) Cholesterol Level 128 mg/dL (< 200) LDL Cholesterol 66 mg/dL (< 100) HDL Cholesterol 51 mg/dL (40-59) Thyroid Stimulating Hormone (TSH) 0.98 uIU/mL (0.55-4.78) Random Vancomycin Level 9.9 ug/mL (5-10) Test 10/09/24 14:00 10/09/24 10:23 10/09/24 09:17 Salicylates Level < 3.0 mg/dL (-30) Acetaminophen Level < 2.0 UG/ML (10.0-20.0) Blood Gas Critical Value Read Back Yes Blood Gas Notified Whom millicent Cates md Blood Gas Notified Time [id number] Blood Gas Notified By Visual C Developer michael meadows Hemoglobin A1c 5.2 % A1C (<5.7) Other Laboratory Tests 10/16/24 06:27 10/15/24 03:00 Brief Hx & Hospital Course: History of Present Illness Caren Boyce is a 74-year-old male with past medical history of anxiety, SI, and left AKA who presents to the ED by EMS was found down by family member last known well time was last night. Patient was found near empty bottle of pills. Upon examination patient is currently intubated on the vent on 40%. Unable to obtain more information as per patient's status. Called number on file Fe, patient's . She stated she woke up this morning and tried to wake him up and was unable to get him to wake up. She says she had called EMS. Patient's stated in the EMS found the empty bottle medication under his buttocks. She also states that he was attempting to kill himself multiple times by cutting himself also overdosing on medications several times due to tiredness and depression. Psych: Anxiety, Other (SI) Past Surgical History: Other (Left AKA) Brief Hospital discharge Patient is a 74-year-old male with multiple medical history including anxiety, suicide ideation and left above-knee amputation brought to the ED via the ambulance after he was found unconscious at home next to an empty temazepam bottle. In the ED, patient was immediately intubated and mechanically ventilated. He received flumazenil. A 12 lead EKG showed AFib and patient was placed on amiodarone drip. Chest x-ray revealed bibasilar atelectasis or pneumonia. He received Central line right neck on 10/09/2024 and was on fentanyl, propofol levophed, and antibiotics. Andrdae catheter was placed. Chest x-ray was done everyday to assess the lung for improvement or worsening. Patient was intubated for 5 days and extubated on 10/14/2024. He tolerated the procedure well. He passed the swallow evaluation and was started on clear fluid diet,but advanced as tolerated. Patient's left arm was swollen. US did not reveal any dvt. Patient was down graded to Telemetry and Tele psyche consult given the patient's recurrent suicidal attempts. This morning, Patient's nurse called to inform me that the patient wants to leave AMA. I spoke to the patient and advised him not to given that he was just extubated barely 2 days ago. However, patient was adamant about leaving AMA and he was encouraged by his ,Fe, to leave AMA. Patient still refused Psych eval and further treatment. Patient and agreed to leave AMA and signed AMA form at 9:30am Diagnoses Acute metabolic encephalopathy due to benzodiazepine overdose Awake and following command 10/14/2024 Atrial fibrillation with rapid ventricular response, stage unknown, now NSR NSTEMI, likely type II secondary to above Atrial fibrillation with rapid ventricular response, stage unknown Hypotension Acute hypoxic respiratory failure Possible aspiration pneumonia Pneumonia gram-/gram+ Pulmonary edema Acute liver failure/ Drug Induce liver injury vs shock liver DANE due VMN possible BPH on flomax Hypocalemia, resolved Lactic acidosis, resolved 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 sedation 15-30 mins, US guided vascular access saved to pacs system. PREOPERATIVE DIAGNOSES: CAD POSTOP DIAGNOSIS: CAD , nstemi DESCRIPTION OF PROCEDURE: The patient or appropriate family signed informed consent understanding the risks, benefits and alternatives of the procedure, they wished to proceed. The patient was brought to the cardiac chemical laboratory technician in n.p.o. state. The patient was prepped in a sterile fashion. Sedation was used per cardiac cath protocol. I administered 8 mL of 2% lidocaine to the right groin . With an antegrade front wall puncture using US guidance and c onfirming FIELD HEALTH OFFICER patency but heavy calcium , I cannulated the right common femoral artery and placed a 6-[place] Glidesheath . angiogram performed to show appropriate arteriotomy site. Next, . Next, a - [id number], JL4 and pigtail. were used for coronary angiogram and LVEDP measurement and pressure pullback. At the completion of procedure, all guides and wires were removed, and there were no immediate complications. angioseal used for closure. FINDINGS: RCA: Moderate vessel off the right sinus of Valsalva, there is no severe flow limiting stenosis. mild plaquing in mid to distal portion LEFT MAIN: Moderate size left main, it bifurcates into LAD and circumflex. CIRCUMFLEX: Moderate caliber vessel coming off the left main with no flow limiting stenosis. very small diminuitive vessel. LAD: LAD is a moderate caliber vessel coming of the left main. it gives off a moderate D1 that as long tubular 50% stenosis. mid to distal LAD has a long stringy 40% lesion into apical LAD. LVEDP of 12 mmhg CONCLUSIONS: 1. moderate CAD 2. normal lvedp PLAN: Aggressive risk factor modification and medical management for the patient. Condition at Discharge: Undetermined Final Diagnosis/Problems List Acute metabolic encephalopathy due to benzodiazepine overdose Awake and following command 10/14/2024 Atrial fibrillation with rapid ventricular response, stage unknown, now NSR NSTEMI, likely type II secondary to above Atrial fibrillation with rapid ventricular response, stage unknown Hypotension Acute hypoxic respiratory failure Possible aspiration pneumonia Pneumonia gram-/gram+ Pulmonary edema Acute liver failure/ Drug Induce liver injury vs shock liver DANE due VMN possible BPH on flomax Hypocalemia, resolved Lactic acidosis, resolved Left AKA since 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 Patient was counseled about treatment plan, medications, possible side effects, patientverbalized understanding. All questions were answered to the best of my ability. This discharge took greater then 30 minutes in planning, reviewing documentation, counseling the patient, and discussing with other team members." ASSESSMENT ASSESSMENT Assessment Date of Service: Oct 17, 2024 Billing Provider: MARLENY HERRON MD Common Visit Codes: NOT BILLABLE RENETTA SCHWARTZ RESIDENT Oct 16, 2024 13:00 MARLENY HERRON MD Oct 18, 2024 14:50
[2024-10-16 15:52] LABS: Blood Alcohol 4.1 mg/dL (<10)
--- NOTE | 2024-10-16 23:55 | DVHPN2 ---
Progress Note - Dictate Date Seen: Oct 16, 2024 Has the PT tested + for MRSA If YES, has PT been informed?: No Medical Necessity Reason Pt with a Central, PICC or Fol: Yes Reason for valles catheter: Strict I&O Subjective Patient was seen and evaluated in follow up. Patient was downgraded to telemetry. Pending tele psych consult. K 3.2. LUE Venous Duplex showed no venous thrombus identified in the left upper extremity vessels. Telemetry reviewed. vital signs Vital Sign Date Time Temp Pulse Resp B/P (MAP) Pulse Ox O2 Delivery O2 Flow Rate FiO2 10/16/24 09:05 165/88 10/16/24 07:00 105 18 97 Nasal Cannula* 3 32 10/16/24 05:00 98.4 98.4 Total Intake and Output 10/15/24 10/15/24 10/16/24 15:00 23:00 07:00 Intake Total 120 ml 0 ml 800 ml Output Total 0 ml 600 ml Balance 120 ml 0 ml 200 ml objective GENERAL: Alert and oriented x 3. No acute distress. EYES: PERRL, EOMI. Anicteric. HENT: Moist mucous membranes. LUNGS: Decreased breath sounds. CARDIOVASCULAR: Regular rate and rhythm. ABDOMEN: Soft, nontender and nondistended. EXTREMITIES: No edema. SKIN: Warm, dry. laboratory and microbiology Laboratory Tests 10/16/24 06:27 10/15/24 03:00 Test 10/16/24 06:27 Range/Units Serum Glucose 101 74-106 mg/dL Problem List Benzodiazepine overdose. Atrial fibrillation with rapid ventricular response, stage unknown, now NSR. NSTEMI, likely type II secondary to above. Rule out structural heart disease. Hypertension. Dyslipidemia. History of left [id number] amputation. Assessment/Plan Continued all current supportive medical care. Amlodipine. DVT and GI prophylactics. IV Hydralazine for SBP >150. Metoprolol. Morphine for pain management. Additional plan as per the hospital course. Dietary Evaluation Review Comments: 1) Initiate MVI @ 1 tb qd 2) Consider Vitamin C @ 500 mg bid and zinc sulfate @ 220 mg qd for 7-10 days 3) If patient remains NPO > 7 days, consider EN/TPN to meet at least 75% of estimated daily needs 4) If GI is preferred, consider Vital AF 1.2 @ 45 mL/hr goal rate as tolerated. TF regimen will provide 1576 kcals (including Propofol), 81g Pro, and 903 mL free H2O per 24 hrs. Goal rate will meet ~93% estimated energy needs and ~74% estimated protein neeeds 5) Advance to regular diet when medically feasible, pending TRANSFILL TECHNICIAN approval 6) Follow-up with social media content specialist regarding suicidal ideation 7) Follow-up with cardiology and pulmonology 8) Continue to monitor I&O, labs, and skin integrity Expected Outcomes/Goals: 1) patient to receive nutrition support within 7 days of NPO status 2) labs to improve 3) diet to advance 4) f/u in 2-3 days Plan discussed with: RAI Motley MD Oct 16, 2024 11:17
== END 2024-10-16 09:30 | disposition left against medical advice (07) | DRG 917 ==
LOC: EDBD 08:58 → ER 08:58 → OVERFLOW 12:40 → ICU WEST 13:25 → WEST WING 10-15 15:57 → TELE-WESTW 10-16 00:58
PROVIDERS: ADMIT Internal Medicine Pulmonary Disease; ATTEND Internal Medicine Pulmonary Disease
PROC: 02HV33Z Insertion of Infusion Device into Superior Vena Cava, Percutaneous Approach (ICD-10-PCS; principal; 2024-10-09)
PROC: 0BH17EZ Insertion of Endotracheal Airway into Trachea, Via Natural or Artificial Opening (ICD-10-PCS; 2024-10-09)
PROC: 5A1955Z Respiratory Ventilation, Greater than 96 Consecutive Hours (ICD-10-PCS; 2024-10-09)
PROC: 4A023N7 Measurement of Cardiac Sampling and Pressure, Left Heart, Percutaneous Approach (ICD-10-PCS; 2024-10-13)
PROC: B211YZZ Fluoroscopy of Multiple Coronary Arteries using Other Contrast (ICD-10-PCS; 2024-10-13)
PROC: 02HV33Z Insertion of Infusion Device into Superior Vena Cava, Percutaneous Approach (ICD-10-PCS; 2024-10-14)
PROC: B548ZZA Ultrasonography of Superior Vena Cava, Guidance (ICD-10-PCS; 2024-10-14)
DX: T42.4X1A Poisoning by benzodiazepines, accidental (unintentional), initial encounter (principal); G92.8 Other toxic encephalopathy; J96.01 Acute respiratory failure with hypoxia; I21.A1 Myocardial infarction type 2; N17.0 Acute kidney failure with tubular necrosis; J15.69 Pneumonia due to other Gram-negative bacteria; J15.9 Unspecified bacterial pneumonia; J69.0 Pneumonitis due to inhalation of food and vomit; E87.1 Hypo-osmolality and hyponatremia; E87.20 Acidosis, unspecified; S36.119A Unspecified injury of liver, initial encounter; E87.6 Hypokalemia; F41.9 Anxiety disorder, unspecified; F32.A Depression, unspecified; R73.9 Hyperglycemia, unspecified; N40.0 Benign prostatic hyperplasia without lower urinary tract symptoms; E78.5 Hyperlipidemia, unspecified; I10 Essential (primary) hypertension; I48.91 Unspecified atrial fibrillation; I25.10 Atherosclerotic heart disease of native coronary artery without angina pectoris; K71.10 Toxic liver disease with hepatic necrosis, without coma; T50.995A Adverse effect of other drugs, medicaments and biological substances, initial encounter; Z79.899 Other long term (current) drug therapy; Z89.612 Acquired absence of left leg above knee; X58.XXXA Exposure to other specified factors, initial encounter; Y93.89 Activity, other specified; Y92.89 Other specified places as the place of occurrence of the external cause; Y99.8 Other external cause status
CPT/HCPCS: 36415; 36556; 36600; 70450; 71045; 80048; 80053; 80061; 80202; 80320; 80329; 81001; 82565; 82805; 82962; 83036; 83605; 83735; 84100; 84443; 84484; 85025; 85610; 85730; 86850; 86900; 86901; 87040; 87070; 87081; 87205; 93005; 93306; 93458; 93971; 94003; 94640; 96365; 96375; 99152; 99291; 99292; G0378; J2470; J2704; J3480; Q9967